=== PATIENT | male | born 1975 | race Caucasian/White ===

== ENCOUNTER 2021-10-25 11:20 | Observation (INO) | payer OTHER ==
[~2021-10-25] VITALS: Ht 157.5 cm; Wt 81.0 kg
[~2021-10-25 11:20] MED LIST: ATOR80 PO; CENTRUM SILVER1 EAC2 PO; CLOP75 PO; GLIP10; Isosorbide Mono30 MG PO; METO50ER PO; NITR.4SL SL; POTA8 PO; STEGLATRO5 MG PO; TRULICITY0.75 MG/01 SC
[2021-10-25 12:25] LABS: BASOPHILS ABSOLUTE AUTO 0.03 K/mm3 (0.00-0.23); BASOPHILS PERCENT AUTO 1 % (0-2); EOSINOPHILS ABSOLUTE AUTO 0.14 K/mm3 (0.00-0.68); EOSINOPHILS PERCENT AUTO 3 % (0-6); Hematocrit 50.3 % (37.0-53.0); Hemoglobin 17.5 g/dL (13.5-17.5); IMMATURE GRAN ABSOLUTE AUTO 0.02 K/mm3 (0.00-0.10); IMMATURE GRAN PERCENT AUTO 0 % (0-1); LYMPHOCYTES ABSOLUTE AUTO 1.21 K/mm3 (0.84-5.20); LYMPHOCYTES PERCENT AUTO 26 % (21-46); MONOCYTES ABSOLUTE AUTO 0.27 K/mm3 (0.16-1.47); MONOCYTES PERCENT AUTO 6 % (4-13); Mean Corpuscular HGB 32.7 pg (26.0-34.0); Mean Corpuscular HGB Conc 34.8 g/dL (31.5-36.5); Mean Corpuscular Volume 94 fL (80-100); Mean Platelet Volume 9.4 fL (9.1-12.4); NEUTROPHILS ABSOLUTE AUTO 2.94 K/mm3 (1.96-9.15); NEUTROPHILS PERCENT AUTO 64 % (41-73); Platelet Count 187 K/mm3 (150-400); RDW Standard Deviation 41.9 fL (35.1-46.3); Red Blood Cell Count 5.35 M/mm3 (4.30-5.90); White Blood Cell Count 4.61 K/mm3 (4.00-11.30)
[2021-10-25 12:44] LABS: Albumin, Blood 4.1 g/dL (3.4-5.0); Albumin/Globulin Ratio 0.9 (0.8-1.8); Bilirubin, Total 0.7 mg/dL (0.1-1.0); Bun/Creatinine Ratio 13.5 (12.0-20.0); Calcium, Blood 9.3 mg/dL (8.5-10.1); Creatinine, Blood 1.26 mg/dL (0.60-1.20); Globulin, Blood 4.4 g/dL (2.2-4.0); Potassium, Blood 5.6 mmol/L (3.5-5.5); Total Protein, Blood 8.5 g/dL (6.4-8.2)
[2021-10-25 14:49] LABS: Source, Urine Clean Catch
[2021-10-25 15:00] LABS: Appearance, Urine Clear (Clear); Bilirubin, Urine Neg (Neg); Blood, Urine 2+ (Neg); Color, Urine Yellow (P-Yellow); Glucose Qualitative, Urine 4+ (Neg); Ketones, Urine Neg (Neg); Leukocyte Esterase, Urine Neg (Neg); Nitrite, Urine Neg (Neg); Protein, Urine Neg (Neg); Urobilinogen, Urine NORM (Normal); pH, Urine 6.5 (5.0-8.0)
[2021-10-25 15:32] LABS: White Blood Cells, Urine 0-2 /hpf (0-5)
[2021-10-25 15:33] LABS: Bacteria Rare /hpf; Hyaline Casts 0-2 /lpf (0-2); Spermatozoa Few /hpf; Squamous Epithelial Cells Rare /hpf (Few)
--- NOTE | 2021-10-25 19:26 | NUR ---
ADMISSION NOTE PT ARRIVED TO MEDICAL FLOOR FROM ED AT APPROX 1826. PT IS AxOx4. COOPERATIVE WITH CARE. INDEPENDENT IN THE ROOM. TELE PLACED. VITALS REVIEWED. PT HYPERTENSIVE. PT STATES HE HAS HX OF HTN, BUT HASN'T BEEN TAKING HIS RX MEDS ADMISSION NOT COMPLETED. NIGHT RN NOTIFIED.
[2021-10-25 21:21] LABS: U Amphetamine Screen Not Detected; U Barbituate Screen Not Detected; U Benzodiazapine Screen Not Detected; U Buprenorphine Screen Not Detected; U Cannabinoids Screen DETECTED; U Cocaine Screen Not Detected; U Methadone Screen Not Detected; U Methamphetamine Screen Not Detected; U Opiates Screen DETECTED; U Oxycodone Screen Not Detected; U Phencyclidine Screen Not Detected; U Propoxyphene Screen Not Detected
[2021-10-26 05:22] LABS: BASOPHILS ABSOLUTE AUTO 0.03 K/mm3 (0.00-0.23); BASOPHILS PERCENT AUTO 1 % (0-2); EOSINOPHILS ABSOLUTE AUTO 0.12 K/mm3 (0.00-0.68); EOSINOPHILS PERCENT AUTO 3 % (0-6); Hematocrit 49.5 % (37.0-53.0); Hemoglobin 16.6 g/dL (13.5-17.5); IMMATURE GRAN ABSOLUTE AUTO 0.02 K/mm3 (0.00-0.10); IMMATURE GRAN PERCENT AUTO 0 % (0-1); LYMPHOCYTES ABSOLUTE AUTO 1.42 K/mm3 (0.84-5.20); LYMPHOCYTES PERCENT AUTO 29 % (21-46); MONOCYTES ABSOLUTE AUTO 0.34 K/mm3 (0.16-1.47); MONOCYTES PERCENT AUTO 7 % (4-13); Mean Corpuscular HGB 32.2 pg (26.0-34.0); Mean Corpuscular HGB Conc 33.5 g/dL (31.5-36.5); Mean Corpuscular Volume 96 fL (80-100); Mean Platelet Volume 9.5 fL (9.1-12.4); NEUTROPHILS PERCENT AUTO 60 % (41-73); Platelet Count 184 K/mm3 (150-400); RDW Coefficient Variation 12.2 % (11.7-14.2); RDW Standard Deviation 43.8 fL (35.1-46.3); Red Blood Cell Count 5.16 M/mm3 (4.30-5.90); White Blood Cell Count 4.83 K/mm3 (4.00-11.30)
[2021-10-26 05:52] LABS: Albumin, Blood 3.5 g/dL (3.4-5.0); Albumin/Globulin Ratio 0.9 (0.8-1.8); Bilirubin, Total 0.6 mg/dL (0.1-1.0); Bun/Creatinine Ratio 12.4 (12.0-20.0); Calcium, Blood 8.6 mg/dL (8.5-10.1); Creatinine, Blood 1.13 mg/dL (0.60-1.20); Potassium, Blood 4.1 mmol/L (3.5-5.5); Total Protein, Blood 7.5 g/dL (6.4-8.2)
--- NOTE | 2021-10-26 06:34 | NUR ---
SHIFT SUMMARY AOX4. BP LIGHTLY ELEVATED @HS SYSTOLIC 180'S, GAVE HYDRALAZINE & BP HAS TRENDED DOWN SINCE. REST OF VITALS STABLE. TELE NSR c 1ST DEGREE HB HR 70'S. HAD 3 EPISODES EMESIS, MEDICATED 2X c ZOFRAN & 1X PHENERGAN. WHILE PT NAUSEATED & HAVING EMESIS HE WAS COOL, CLAMMY, DIAPHORETIC. REPORTS CONSTANT CP OVER LUCW 7-8, STATES PAIN LEVEL FLUCTUATES HOWEVER DOESNT GO AWAY. MEDICATED 3X c 1MG DILAUDID & STATES PAIN LEVEL STILL /10 HOWEVER SITTING WATCHING TV & ASKING THIS NURSE ABOUT THE [facility] TO GO TO IN TOWN. PT STATES NITRO DOESNT WORK FOR THE PAIN. REPORTS TIGHTNESS & DYSPNEA c CP THATS WORSE c ACTIVITY. MEDICATED 1X FOR PAULINO c TYLENOL. PLAN TO HAVE ECHO PERFORMED TODAY. CALL LIGHT IN REACH & PT ABLE TO MAKE NEEDS KNOWN.
[2021-10-26] MEDS ORDERED: ASPI81CH PO (15:07)
[2021-10-26] MEDS ORDERED: LIDO700A20 TOP (15:07)
--- NOTE | 2021-10-26 15:55 | NUR ---
DISCHARGE SUMMARY PATIENT DISCHARGED HOME. DISCHARGE PAPERWORK REVIEWED WITH PATIENT AND ALL QUESTIONS ANSWERED. PRESCRIPTIONS FAXED TO PATIENTS PREFERRED PHARMACY. IV AND TELE D/C'D. PATIENT AND ALL BELONGINGS TAKEN VIA WHEELCHAIR TO TAXI AND TAKEN BY TAXI.
== END 2021-10-26 15:46 | disposition home or self-care (01) ==
LOC: ER 11:20 → MEDS 16:40
PROVIDERS: Emergency Medicine; Family Medicine; ADMIT Internal Medicine
DX: R07.9 Chest pain, unspecified (principal); I11.9 Hypertensive heart disease without heart failure; R79.89 Other specified abnormal findings of blood chemistry; E87.5 Hyperkalemia; E87.1 Hypo-osmolality and hyponatremia; E11.9 Type 2 diabetes mellitus without complications; I25.10 Atherosclerotic heart disease of native coronary artery without angina pectoris; F10.10 Alcohol abuse, uncomplicated; J44.9 Chronic obstructive pulmonary disease, unspecified; E78.5 Hyperlipidemia, unspecified; N17.9 Acute kidney failure, unspecified; I25.2 Old myocardial infarction; I69.998 Other sequelae following unspecified cerebrovascular disease; Z91.14 Patient's other noncompliance with medication regimen; Z95.1 Presence of aortocoronary bypass graft; Z88.8 Allergy status to other drugs, medicaments and biological substances; Z88.5 Allergy status to narcotic agent; Z87.891 Personal history of nicotine dependence; Z87.820 Personal history of traumatic brain injury; Z95.5 Presence of coronary angioplasty implant and graft
CPT/HCPCS: 36415; 71045; 80053; 81001; 82947; 83880; 84484; 85025; 93308; 93321; A9270; J0360; J1170; J1650; J1815; J2405; J2550

== ENCOUNTER 2021-12-10 20:08 | Emergency (ER) | payer OTHER ==
[~2021-12-10] VITALS: Ht 162.6 cm; Wt 78.9 kg
[~2021-12-10 20:08] MED LIST changes: +ASPI81CH PO; +LIDO700A20 TOP
[2021-12-10 20:42] LABS: BASOPHILS ABSOLUTE AUTO 0.02 K/mm3 (0.00-0.23); BASOPHILS PERCENT AUTO 1 % (0-2); EOSINOPHILS ABSOLUTE AUTO 0.13 K/mm3 (0.00-0.68); EOSINOPHILS PERCENT AUTO 3 % (0-6); Hematocrit 42.3 % (37.0-53.0); Hemoglobin 14.6 g/dL (13.5-17.5); IMMATURE GRAN ABSOLUTE AUTO 0.01 K/mm3 (0.00-0.10); IMMATURE GRAN PERCENT AUTO 0 % (0-1); LYMPHOCYTES ABSOLUTE AUTO 1.76 K/mm3 (0.84-5.20); LYMPHOCYTES PERCENT AUTO 41 % (21-46); MONOCYTES ABSOLUTE AUTO 0.34 K/mm3 (0.16-1.47); MONOCYTES PERCENT AUTO 8 % (4-13); Mean Corpuscular HGB 32.7 pg (26.0-34.0); Mean Corpuscular HGB Conc 34.5 g/dL (31.5-36.5); Mean Corpuscular Volume 95 fL (80-100); Mean Platelet Volume 9.8 fL (9.1-12.4); NEUTROPHILS PERCENT AUTO 47 % (41-73); Platelet Count 157 K/mm3 (150-400); RDW Coefficient Variation 12.4 % (11.7-14.2); Red Blood Cell Count 4.47 M/mm3 (4.30-5.90); White Blood Cell Count 4.26 K/mm3 (4.00-11.30)
[2021-12-10 21:01] LABS: Albumin, Blood 3.9 g/dL (3.4-5.0); Albumin/Globulin Ratio 1.2 (0.8-1.8); Bilirubin, Total 0.5 mg/dL (0.1-1.0); Bun/Creatinine Ratio 16.3 (12.0-20.0); Calcium, Blood 8.4 mg/dL (8.5-10.1); Creatinine, Blood 1.41 mg/dL (0.60-1.20); Globulin, Blood 3.3 g/dL (2.2-4.0); Potassium, Blood 4.7 mmol/L (3.5-5.5); Total Protein, Blood 7.2 g/dL (6.4-8.2)
== END 2021-12-10 22:33 | disposition home or self-care (01) ==
LOC: ER 20:08
PROVIDERS: Physician Assistant
DX: G45.9 Transient cerebral ischemic attack, unspecified (principal); I25.2 Old myocardial infarction; E78.5 Hyperlipidemia, unspecified; E11.9 Type 2 diabetes mellitus without complications; I10 Essential (primary) hypertension; I25.10 Atherosclerotic heart disease of native coronary artery without angina pectoris; K21.9 Gastro-esophageal reflux disease without esophagitis; Z88.8 Allergy status to other drugs, medicaments and biological substances; Z88.5 Allergy status to narcotic agent; Z79.899 Other long term (current) drug therapy; Z79.82 Long term (current) use of aspirin; Z87.891 Personal history of nicotine dependence
CPT/HCPCS: 36415; 70450; 80053; 82947; 85025; 93005; 93010; 99285-25; A9270

== ENCOUNTER 2022-07-01 06:56 | Day surgery (SDC) | payer OTHER ==
[2022-07-01] VITALS (9 sets, daily range): BP systolic 152–175; BP diastolic 88–120
[~2022-07-01] VITALS: Ht 165.1 cm; Wt 84.0 kg
[~2022-07-01 06:56] MED LIST changes: +BUTALB-ASPIRIN1 EAC1 PO; +EZET10 PO; +PANT40 PO
[2022-07-01] MEDS ORDERED: GABA300 PO (07:31)
--- NOTE | 2022-07-01 11:55 | NUR ---
PT AMBULATED TO BR TO VOID. LEFT FEMORAL GROIN SITE SOFT NON-TENDER WITH NO HEMATOMA AND NO BLEEDING. CALL LIGHT IN REACH.
--- NOTE | 2022-07-01 12:00 | NUR ---
PT AMB TO BATHROOM /C SBA. TOLERATED WELL. L BLEEDING OR SWELLING L GROIN AREA.
--- NOTE | 2022-07-01 13:03 | NUR ---
PT AND VERBALIZED UNDERSTANDING OF WRITTEN AND VERBAL D/C INST. IV REMOVED. PT TAKEN OUT OF THE HRT CENTER VIA W/C.
== END 2022-07-01 13:00 | disposition home or self-care (01) ==
LOC: MHTC 06:56
DX: E11.51 Type 2 diabetes mellitus with diabetic peripheral angiopathy without gangrene (principal); I70.223 Atherosclerosis of native arteries of extremities with rest pain, bilateral legs; I25.10 Atherosclerotic heart disease of native coronary artery without angina pectoris; E78.5 Hyperlipidemia, unspecified; Z95.1 Presence of aortocoronary bypass graft; Z87.891 Personal history of nicotine dependence; Z88.5 Allergy status to narcotic agent; Z88.8 Allergy status to other drugs, medicaments and biological substances; Z79.82 Long term (current) use of aspirin; Z79.4 Long term (current) use of insulin; Z79.02 Long term (current) use of antithrombotics/antiplatelets; Z79.899 Other long term (current) drug therapy
CPT/HCPCS: 76937; 99152; 99153; C1725; C1760; C1769; C1887; C1894; C2623; J1644; J2250; J3010; J7030; J7050; Q9967

== ENCOUNTER 2022-09-11 17:04 | Emergency (ER) | payer OTHER ==
[~2022-09-11] VITALS: Ht 170.2 cm; Wt 79.4 kg
[~2022-09-11 17:04] MED LIST changes: +GABA300 PO; +INSULANI SC; +TRAZ50 PO
[2022-09-11 17:10] VITALS: BP 104/90
[2022-09-11 17:54] LABS: BASOPHILS ABSOLUTE AUTO 0.02 K/mm3 (0.00-0.23); BASOPHILS PERCENT AUTO 0 % (0-2); EOSINOPHILS ABSOLUTE AUTO 0.08 K/mm3 (0.00-0.68); EOSINOPHILS PERCENT AUTO 1 % (0-6); Hematocrit 49.4 % (37.0-53.0); Hemoglobin 16.6 g/dL (13.5-17.5); IMMATURE GRAN ABSOLUTE AUTO 0.02 K/mm3 (0.00-0.10); IMMATURE GRAN PERCENT AUTO 0 % (0-1); LYMPHOCYTES ABSOLUTE AUTO 1.42 K/mm3 (0.84-5.20); LYMPHOCYTES PERCENT AUTO 25 % (21-46); MONOCYTES ABSOLUTE AUTO 0.43 K/mm3 (0.16-1.47); MONOCYTES PERCENT AUTO 8 % (4-13); Mean Corpuscular HGB 31.8 pg (26.0-34.0); Mean Corpuscular HGB Conc 33.6 g/dL (31.5-36.5); Mean Corpuscular Volume 95 fL (80-100); Mean Platelet Volume 9.4 fL (9.1-12.4); NEUTROPHILS ABSOLUTE AUTO 3.61 K/mm3 (1.96-9.15); NEUTROPHILS PERCENT AUTO 65 % (41-73); Platelet Count 293 K/mm3 (150-400); RDW Coefficient Variation 11.9 % (11.7-14.2); RDW Standard Deviation 41.4 fL (35.1-46.3); Red Blood Cell Count 5.22 M/mm3 (4.30-5.90); White Blood Cell Count 5.58 K/mm3 (4.00-11.30)
[2022-09-11 18:26] LABS: Albumin/Globulin Ratio 0.8 (0.8-1.8); Bilirubin, Total 0.7 mg/dL (0.1-1.0); Calcium, Blood 9.9 mg/dL (8.5-10.1); Creatinine, Blood 1.5 mg/dL (0.60-1.20); Globulin, Blood 4.9 g/dL (2.2-4.0); Potassium, Blood 4.7 mmol/L (3.5-5.5); Total Protein, Blood 8.9 g/dL (6.4-8.2)
[2022-09-11] MEDS ORDERED: AMOCLA875 PO (21:42)
== END 2022-09-11 21:52 | disposition home or self-care (01) ==
LOC: ER 17:04
PROVIDERS: Physician Assistant
DX: J32.9 Chronic sinusitis, unspecified (principal); I25.10 Atherosclerotic heart disease of native coronary artery without angina pectoris; L98.8 Other specified disorders of the skin and subcutaneous tissue; Z88.5 Allergy status to narcotic agent; Z88.8 Allergy status to other drugs, medicaments and biological substances; Z79.899 Other long term (current) drug therapy; Z79.82 Long term (current) use of aspirin; Z79.4 Long term (current) use of insulin; Z87.891 Personal history of nicotine dependence; I25.2 Old myocardial infarction; E78.5 Hyperlipidemia, unspecified; E11.9 Type 2 diabetes mellitus without complications; I10 Essential (primary) hypertension; K21.9 Gastro-esophageal reflux disease without esophagitis; M10.9 Gout, unspecified
CPT/HCPCS: 70450; 71046; 80053; 84484; 85025; 93005; 93010; 99284-25; A9270; J7030

== ENCOUNTER 2022-10-16 23:58 | Emergency (ER) | payer OTHER ==
[~2022-10-16] VITALS: Ht 167.6 cm; Wt 65.8 kg
[~2022-10-16 23:58] MED LIST changes: +AMOCLA875 PO
[2022-10-17 00:37] LABS: BASOPHILS ABSOLUTE AUTO 0.02 K/mm3 (0.00-0.23); BASOPHILS PERCENT AUTO 0 % (0-2); EOSINOPHILS ABSOLUTE AUTO 0.08 K/mm3 (0.00-0.68); EOSINOPHILS PERCENT AUTO 1 % (0-6); Hematocrit 43.9 % (37.0-53.0); Hemoglobin 14.8 g/dL (13.5-17.5); IMMATURE GRAN ABSOLUTE AUTO 0.07 K/mm3 (0.00-0.10); IMMATURE GRAN PERCENT AUTO 1 % (0-1); LYMPHOCYTES ABSOLUTE AUTO 1.91 K/mm3 (0.84-5.20); LYMPHOCYTES PERCENT AUTO 29 % (21-46); MONOCYTES ABSOLUTE AUTO 0.46 K/mm3 (0.16-1.47); MONOCYTES PERCENT AUTO 7 % (4-13); Mean Corpuscular HGB 32.5 pg (26.0-34.0); Mean Corpuscular HGB Conc 33.7 g/dL (31.5-36.5); Mean Corpuscular Volume 96 fL (80-100); Mean Platelet Volume 11.2 fL (9.1-12.4); NEUTROPHILS ABSOLUTE AUTO 4.08 K/mm3 (1.96-9.15); NEUTROPHILS PERCENT AUTO 62 % (41-73); Platelet Count 125 K/mm3 (150-400); RDW Coefficient Variation 13.2 % (11.7-14.2); RDW Standard Deviation 46.4 fL (35.1-46.3); Red Blood Cell Count 4.56 M/mm3 (4.30-5.90); White Blood Cell Count 6.62 K/mm3 (4.00-11.30)
[2022-10-17 02:06] LABS: Albumin, Blood 3.7 g/dL (3.4-5.0); Bilirubin, Total 0.4 mg/dL (0.1-1.0); Bun/Creatinine Ratio 27.9 (12.0-20.0); Calcium, Blood 8.2 mg/dL (8.5-10.1); Creatinine, Blood 1.22 mg/dL (0.60-1.20); Globulin, Blood 3.6 g/dL (2.2-4.0); Potassium, Blood 3.9 mmol/L (3.5-5.5); Total Protein, Blood 7.3 g/dL (6.4-8.2)
[2022-10-17] MEDS ORDERED: Flonase 0.05% N16 GM (03:03)
[2022-10-17] MEDS ORDERED: CEFP200 PO (05:34)
[2022-10-17] MEDS ORDERED: AZIT250 PO (05:34)
[2022-10-17 05:45] VITALS: BP 140/81
== END 2022-10-17 05:55 | disposition home or self-care (01) ==
LOC: ER 23:58
PROVIDERS: Student in an Organized Health Care Education/Training Program
DX: J18.9 Pneumonia, unspecified organism (principal); G43.909 Migraine, unspecified, not intractable, without status migrainosus; Z88.5 Allergy status to narcotic agent; Z79.899 Other long term (current) drug therapy; Z79.82 Long term (current) use of aspirin; I13.0 Hypertensive heart and chronic kidney disease with heart failure and stage 1 through stage 4 chronic kidney disease, or unspecified chronic kidney disease; E11.22 Type 2 diabetes mellitus with diabetic chronic kidney disease; E78.5 Hyperlipidemia, unspecified; I50.30 Unspecified diastolic (congestive) heart failure; I25.10 Atherosclerotic heart disease of native coronary artery without angina pectoris; Z87.891 Personal history of nicotine dependence
CPT/HCPCS: 70450; 71046; 80053; 83880; 84484; 85025; 93005; 93010; 96361; 96374; 96375; 99285-25; A9270; J1885; J2765; J7030

== ENCOUNTER 2023-03-22 18:28 | Emergency (ER) | payer OTHER ==
[~2023-03-22] VITALS: Ht 167.6 cm; Wt 79.4 kg
[~2023-03-22 18:28] MED LIST changes: +AZIT250 PO; +CEFP200 PO; +Flonase 0.05% N16 GM
[2023-03-22 19:53] LABS: BASOPHILS ABSOLUTE AUTO 0.03 K/mm3 (0.00-0.23); BASOPHILS PERCENT AUTO 1 % (0-2); EOSINOPHILS ABSOLUTE AUTO 0.11 K/mm3 (0.00-0.68); EOSINOPHILS PERCENT AUTO 2 % (0-6); Hematocrit 47.3 % (37.0-53.0); Hemoglobin 16.3 g/dL (13.5-17.5); IMMATURE GRAN ABSOLUTE AUTO 0.02 K/mm3 (0.00-0.10); IMMATURE GRAN PERCENT AUTO 0 % (0-1); LYMPHOCYTES ABSOLUTE AUTO 1.51 K/mm3 (0.84-5.20); LYMPHOCYTES PERCENT AUTO 30 % (21-46); MONOCYTES ABSOLUTE AUTO 0.39 K/mm3 (0.16-1.47); MONOCYTES PERCENT AUTO 8 % (4-13); Mean Corpuscular HGB 32.4 pg (26.0-34.0); Mean Corpuscular HGB Conc 34.5 g/dL (31.5-36.5); Mean Corpuscular Volume 94 fL (80-100); Mean Platelet Volume 9.3 fL (9.1-12.4); NEUTROPHILS ABSOLUTE AUTO 2.96 K/mm3 (1.96-9.15); NEUTROPHILS PERCENT AUTO 59 % (41-73); Platelet Count 192 K/mm3 (150-400); RDW Coefficient Variation 12.7 % (11.7-14.2); RDW Standard Deviation 43.8 fL (35.1-46.3); Red Blood Cell Count 5.03 M/mm3 (4.30-5.90); White Blood Cell Count 5.02 K/mm3 (4.00-11.30)
[2023-03-22 20:33] LABS: Albumin, Blood 3.9 g/dL (3.4-5.0); Bilirubin, Total 0.6 mg/dL (0.1-1.0); Calcium, Blood 9.3 mg/dL (8.5-10.1); Creatinine, Blood 1.41 mg/dL (0.60-1.20); Globulin, Blood 3.9 g/dL (2.2-4.0); Potassium, Blood 4.8 mmol/L (3.5-5.5); Total Protein, Blood 7.8 g/dL (6.4-8.2)
[2023-03-22 21:15] VITALS: BP 118/91
== END 2023-03-22 21:30 | disposition home or self-care (01) ==
LOC: ER 18:28
PROVIDERS: Emergency Medicine
DX: R07.9 Chest pain, unspecified (principal); R06.02 Shortness of breath; Z87.891 Personal history of nicotine dependence; Z86.73 Personal history of transient ischemic attack (TIA), and cerebral infarction without residual deficits; Z95.1 Presence of aortocoronary bypass graft; Z79.85 Long-term (current) use of injectable non-insulin antidiabetic drugs; Z79.899 Other long term (current) drug therapy; Z88.5 Allergy status to narcotic agent; Z88.8 Allergy status to other drugs, medicaments and biological substances
CPT/HCPCS: 36415; 71046; 80053; 84484; 85025; 93005; 93010; 99285-25

== ENCOUNTER → 2023-11-05 | Emergency (ER) | payer OTHER ==
[~2023-11-05] VITALS: Ht 162.6 cm; Wt 72.6 kg
[2023-11-05 15:21] VITALS: BP 130/87
[2023-11-05 16:04] LABS: BASOPHILS ABSOLUTE AUTO 0.03 K/mm3 (0.00-0.23); BASOPHILS PERCENT AUTO 1 % (0-2); EOSINOPHILS ABSOLUTE AUTO 0.13 K/mm3 (0.00-0.68); EOSINOPHILS PERCENT AUTO 3 % (0-6); Hematocrit 44.2 % (37.0-53.0); Hemoglobin 15.1 g/dL (13.5-17.5); IMMATURE GRAN ABSOLUTE AUTO 0.01 K/mm3 (0.00-0.10); IMMATURE GRAN PERCENT AUTO 0 % (0-1); LYMPHOCYTES ABSOLUTE AUTO 1.71 K/mm3 (0.84-5.20); LYMPHOCYTES PERCENT AUTO 37 % (21-46); MONOCYTES ABSOLUTE AUTO 0.33 K/mm3 (0.16-1.47); MONOCYTES PERCENT AUTO 7 % (4-13); Mean Corpuscular HGB Conc 34.2 g/dL (31.5-36.5); Mean Corpuscular Volume 97 fL (80-100); Mean Platelet Volume 10.7 fL (9.1-12.4); NEUTROPHILS ABSOLUTE AUTO 2.48 K/mm3 (1.96-9.15); NEUTROPHILS PERCENT AUTO 53 % (41-73); Platelet Count 166 K/mm3 (150-400); RDW Coefficient Variation 12.6 % (11.7-14.2); RDW Standard Deviation 44.6 fL (35.1-46.3); Red Blood Cell Count 4.57 M/mm3 (4.30-5.90); White Blood Cell Count 4.69 K/mm3 (4.00-11.30)
[2023-11-05 16:13] LABS: Albumin, Blood 4.2 g/dL (3.4-5.0); Albumin/Globulin Ratio 1.2 (0.8-1.8); Bilirubin, Total 0.5 mg/dL (0.1-1.0); Bun/Creatinine Ratio 19.6 (12.0-20.0); Calcium, Blood 8.9 mg/dL (8.5-10.1); Creatinine, Blood 1.48 mg/dL (0.60-1.20); Globulin, Blood 3.6 g/dL (2.2-4.0); Potassium, Blood 4.3 mmol/L (3.5-5.5); Total Protein, Blood 7.8 g/dL (6.4-8.2)
== END ==
LOC: ER 15:08
PROVIDERS: Physician Assistant
DX: R53.1 Weakness (principal); E11.9 Type 2 diabetes mellitus without complications; E78.5 Hyperlipidemia, unspecified; I11.0 Hypertensive heart disease with heart failure; I50.30 Unspecified diastolic (congestive) heart failure; Z87.891 Personal history of nicotine dependence; Z86.73 Personal history of transient ischemic attack (TIA), and cerebral infarction without residual deficits; Z79.899 Other long term (current) drug therapy; Z79.52 Long term (current) use of systemic steroids; Z79.82 Long term (current) use of aspirin; Z79.02 Long term (current) use of antithrombotics/antiplatelets; Z88.5 Allergy status to narcotic agent
CPT/HCPCS: 70450; 80053; 85025

== ENCOUNTER 2024-01-29 13:27 | Emergency (ER) | payer OTHER ==
[~2024-01-29] VITALS: Ht 170.2 cm; Wt 79.4 kg
[~2024-01-29 13:27] MED LIST changes: +AMLO5 PO; +CARV6.25 PO; +FUROSEMIDE20 MG PO; +INSULIN GL100 UNIT/2 SC; +Lisinopril2.5 MG PO; +OXYC5; +POTCHL20ER PO; +SOAANZ20 M1 PO; +TOPI50 PO
[2024-01-29 14:38] LABS: BASOPHILS ABSOLUTE AUTO 0.02 K/mm3 (0.00-0.23); BASOPHILS PERCENT AUTO 0 % (0-2); EOSINOPHILS ABSOLUTE AUTO 0.08 K/mm3 (0.00-0.68); EOSINOPHILS PERCENT AUTO 2 % (0-6); Hematocrit 43.1 % (37.0-53.0); Hemoglobin 14.4 g/dL (13.5-17.5); IMMATURE GRAN ABSOLUTE AUTO 0.02 K/mm3 (0.00-0.10); IMMATURE GRAN PERCENT AUTO 0 % (0-1); LYMPHOCYTES ABSOLUTE AUTO 1.27 K/mm3 (0.84-5.20); LYMPHOCYTES PERCENT AUTO 28 % (21-46); MONOCYTES ABSOLUTE AUTO 0.32 K/mm3 (0.16-1.47); MONOCYTES PERCENT AUTO 7 % (4-13); Mean Corpuscular HGB 33.3 pg (26.0-34.0); Mean Corpuscular HGB Conc 33.4 g/dL (31.5-36.5); Mean Corpuscular Volume 100 fL (80-100); Mean Platelet Volume 9.8 fL (9.1-12.4); NEUTROPHILS ABSOLUTE AUTO 2.91 K/mm3 (1.96-9.15); NEUTROPHILS PERCENT AUTO 63 % (41-73); Platelet Count 182 K/mm3 (150-400); RDW Coefficient Variation 12.4 % (11.7-14.2); RDW Standard Deviation 45.1 fL (35.1-46.3); Red Blood Cell Count 4.32 M/mm3 (4.30-5.90); White Blood Cell Count 4.62 K/mm3 (4.00-11.30)
[2024-01-29 14:57] LABS: Albumin, Blood 3.6 g/dL (3.4-5.0); Albumin/Globulin Ratio 0.9 (0.8-1.8); Bilirubin, Total 0.6 mg/dL (0.1-1.0); Bun/Creatinine Ratio 18.9 (12.0-20.0); Calcium, Blood 8.3 mg/dL (8.5-10.1); Creatinine, Blood 1.32 mg/dL (0.60-1.20); Globulin, Blood 3.8 g/dL (2.2-4.0); Potassium, Blood 5.5 mmol/L (3.5-5.5); Total Protein, Blood 7.4 g/dL (6.4-8.2)
[2024-01-29] MEDS ORDERED: FentaNYL Citrate 50 MCG/ML 2 ML Injection IV ONE (16:35)
[2024-01-29] MEDS ORDERED: Isosorbide Dini30 MG PO (20:31)
[2024-01-29 20:55] VITALS: BP 170/96
== END 2024-01-29 21:00 | disposition home or self-care (01) ==
LOC: ER 13:27
PROVIDERS: Physician Assistant
DX: R07.89 Other chest pain (principal); Z87.891 Personal history of nicotine dependence; Z86.73 Personal history of transient ischemic attack (TIA), and cerebral infarction without residual deficits; Z79.02 Long term (current) use of antithrombotics/antiplatelets; Z79.51 Long term (current) use of inhaled steroids; Z79.899 Other long term (current) drug therapy; Z88.5 Allergy status to narcotic agent; Z88.8 Allergy status to other drugs, medicaments and biological substances
CPT/HCPCS: 36415; 71046; 71260; 80053; 83690; 84484; 85025; 93005; 93010; 96374-59; 99285-25; J3010; Q9967

== ENCOUNTER 2024-02-14 17:00 | Emergency (ER) | payer OTHER ==
[~2024-02-14] VITALS: Ht 165.1 cm; Wt 79.4 kg
[~2024-02-14 17:00] MED LIST changes: +Isosorbide Dini30 MG PO
[2024-02-14 18:13] LABS: Source, Urine Clean Catch
[2024-02-14 18:15] LABS: BASOPHILS ABSOLUTE AUTO 0.02 K/mm3 (0.00-0.23); BASOPHILS PERCENT AUTO 1 % (0-2); EOSINOPHILS ABSOLUTE AUTO 0.07 K/mm3 (0.00-0.68); EOSINOPHILS PERCENT AUTO 2 % (0-6); Hematocrit 39.8 % (37.0-53.0); Hemoglobin 13.4 g/dL (13.5-17.5); IMMATURE GRAN ABSOLUTE AUTO 0.01 K/mm3 (0.00-0.10); IMMATURE GRAN PERCENT AUTO 0 % (0-1); LYMPHOCYTES ABSOLUTE AUTO 1.53 K/mm3 (0.84-5.20); LYMPHOCYTES PERCENT AUTO 39 % (21-46); MONOCYTES ABSOLUTE AUTO 0.35 K/mm3 (0.16-1.47); MONOCYTES PERCENT AUTO 9 % (4-13); Mean Corpuscular HGB 33.1 pg (26.0-34.0); Mean Corpuscular HGB Conc 33.7 g/dL (31.5-36.5); Mean Corpuscular Volume 98 fL (80-100); Mean Platelet Volume 10.1 fL (9.1-12.4); NEUTROPHILS ABSOLUTE AUTO 1.99 K/mm3 (1.96-9.15); NEUTROPHILS PERCENT AUTO 50 % (41-73); Platelet Count 146 K/mm3 (150-400); RDW Coefficient Variation 12.8 % (11.7-14.2); RDW Standard Deviation 46.5 fL (35.1-46.3); Red Blood Cell Count 4.05 M/mm3 (4.30-5.90); White Blood Cell Count 3.97 K/mm3 (4.00-11.30)
[2024-02-14 18:16] LABS: Appearance, Urine Clear (Clear); Bilirubin, Urine Neg (Neg); Blood, Urine Neg (Neg); Color, Urine Pale Yellow (P-Yellow); Glucose Qualitative, Urine 4+ (Neg); Ketones, Urine Neg (Neg); Leukocyte Esterase, Urine Neg (Neg); Nitrite, Urine Neg (Neg); Protein, Urine Neg (Neg); Urobilinogen, Urine NORM (Normal)
[2024-02-14 18:41] LABS: Albumin, Blood 3.6 g/dL (3.4-5.0); Bilirubin, Total 0.7 mg/dL (0.1-1.0); Bun/Creatinine Ratio 16.6 (12.0-20.0); Calcium, Blood 8.2 mg/dL (8.5-10.1); Creatinine, Blood 1.75 mg/dL (0.60-1.20); Globulin, Blood 3.6 g/dL (2.2-4.0); Magnesium, Blood 2.4 mg/dL (1.6-2.4); Potassium, Blood 4.5 mmol/L (3.5-5.5); Total Protein, Blood 7.2 g/dL (6.4-8.2)
[2024-02-14 18:58] LABS: Influenza A, PCR NEGATIVE (NEGATIVE); Influenza B, PCR NEGATIVE (NEGATIVE); Resp Syncytial Virus, PCR NEGATIVE (NEGATIVE); SARS-Cov-2 (COVID-19) PCR, MMC NEGATIVE (NEGATIVE)
[2024-02-14] MEDS ORDERED: Ketorolac Tromethamine 15mg Vial IV ONE (21:35)
[2024-02-14 22:30] VITALS: BP 100/60
== END 2024-02-14 22:45 | disposition home or self-care (01) ==
LOC: ER 17:00
PROVIDERS: Student in an Organized Health Care Education/Training Program
DX: R55 Syncope and collapse (principal); I10 Essential (primary) hypertension; I25.2 Old myocardial infarction; Z86.73 Personal history of transient ischemic attack (TIA), and cerebral infarction without residual deficits; Z95.1 Presence of aortocoronary bypass graft; Z95.5 Presence of coronary angioplasty implant and graft; Z87.891 Personal history of nicotine dependence; Z88.5 Allergy status to narcotic agent; Z88.8 Allergy status to other drugs, medicaments and biological substances; Z79.85 Long-term (current) use of injectable non-insulin antidiabetic drugs; Z79.4 Long term (current) use of insulin; Z79.82 Long term (current) use of aspirin; Z79.01 Long term (current) use of anticoagulants; Z79.899 Other long term (current) drug therapy
CPT/HCPCS: 0241U; 70450; 71045; 80053; 81003; 83735; 84484; 85025; 93005; 93010; 96374; 99285-25; J1885

== ENCOUNTER 2024-02-28 10:13 | Emergency (ER) | payer OTHER ==
[~2024-02-28] VITALS: Ht 170.2 cm; Wt 74.8 kg
[2024-02-28 11:05] LABS: Hematocrit 39.2 % (37.0-53.0); Hemoglobin 13.4 g/dL (13.5-17.5); Mean Corpuscular HGB 32.9 pg (26.0-34.0); Mean Corpuscular HGB Conc 34.2 g/dL (31.5-36.5); Mean Corpuscular Volume 96 fL (80-100); Mean Platelet Volume 9.7 fL (9.1-12.4); Platelet Count 166 K/mm3 (150-400); RDW Coefficient Variation 12.2 % (11.7-14.2); RDW Standard Deviation 43.7 fL (35.1-46.3); Red Blood Cell Count 4.07 M/mm3 (4.30-5.90); White Blood Cell Count 3.47 K/mm3 (4.00-11.30)
[2024-02-28] MEDS ORDERED: HUMALOG100 UNIT/1 SC (11:05)
[2024-02-28] MEDS ORDERED: NS 500 ML IV SCH (11:05)
[2024-02-28] MEDS ORDERED: STEGLATRO15 MG PO (11:06)
[2024-02-28 11:30] LABS: Albumin, Blood 3.7 g/dL (3.4-5.0); Albumin/Globulin Ratio 1.1 (0.8-1.8); Bilirubin, Total 0.6 mg/dL (0.1-1.0); Bun/Creatinine Ratio 15.2 (12.0-20.0); Calcium, Blood 8.7 mg/dL (8.5-10.1); Creatinine, Blood 1.71 mg/dL (0.60-1.20); Globulin, Blood 3.5 g/dL (2.2-4.0); Potassium, Blood 4.1 mmol/L (3.5-5.5); Total Protein, Blood 7.2 g/dL (6.4-8.2)
[2024-02-28 11:55] LABS: BAND PERCENT MAN 2 % (0-8); BASOPHILS PERCENT MAN 0 % (0-2); EOSINOPHILS PERCENT MAN 0 % (0-6); LYMPHOCYTES ABSOLUTE MAN 0.86 K/mm3 (0.84-5.20); LYMPHOCYTES PERCENT MAN 25 % (21-46); MONOCYTES ABSOLUTE MAN 0.31 K/mm3 (0.16-1.47); MONOCYTES PERCENT MAN 9 % (4-13); NEUTROPHILS ABSOLUTE MAN 2.25 K/mm3 (1.96-9.15); PLASMA CELL ABSOLUTE MAN 0.03 K/mm3 (0.00-0.00); PLASMA CELLS PERCENT MAN 1 % (0-0); SEG NEUTROPHILS PERCENT MAN 63 % (41-73); TOTAL CELLS COUNTED 100
[2024-02-28 13:10] VITALS: BP 104/76
[2024-02-28 13:12] LABS: Source, Urine Clean Catch
[2024-02-28 13:21] LABS: Appearance, Urine Clear (Clear); Bilirubin, Urine Neg (Neg); Blood, Urine Neg (Neg); Glucose Qualitative, Urine 4+ (Neg); Ketones, Urine Neg (Neg); Leukocyte Esterase, Urine Neg (Neg); Nitrite, Urine Neg (Neg); Protein, Urine Neg (Neg); Urobilinogen, Urine NORM (Normal)
[2024-02-28 14:10] LABS: Color, Urine Pale Yellow (P-Yellow)
== END 2024-02-28 13:41 | disposition home or self-care (01) ==
LOC: ER 10:13
PROVIDERS: Physician Assistant
DX: I95.9 Hypotension, unspecified (principal); R55 Syncope and collapse; I11.0 Hypertensive heart disease with heart failure; I50.30 Unspecified diastolic (congestive) heart failure; E78.5 Hyperlipidemia, unspecified; G43.909 Migraine, unspecified, not intractable, without status migrainosus; Z79.51 Long term (current) use of inhaled steroids; Z79.899 Other long term (current) drug therapy; Z79.02 Long term (current) use of antithrombotics/antiplatelets; Z79.82 Long term (current) use of aspirin; Z88.5 Allergy status to narcotic agent; Z88.8 Allergy status to other drugs, medicaments and biological substances
CPT/HCPCS: 80053; 81003; 82947; 83880; 85025; 93005; 93010; 96360; 99284-25; J7030; J7060

== ENCOUNTER → 2024-03-15 | Outpatient (CLI) | payer OTHER ==
[~2024-03-15] MED LIST changes: +HUMALOG100 UNIT/1 SC; +ONDA4ODT MM; +STEGLATRO15 MG PO
[2024-03-15 18:37] LABS: Source, Urine Clean Catch
[2024-03-15 19:59] LABS: Hyaline Casts 25-50 /lpf (0-2)
[2024-03-15 20:01] LABS: Bacteria Few /hpf; Red Blood Cells, Urine 0-2 /hpf (0-2); Spermatozoa Many /hpf; Squamous Epithelial Cells Rare /hpf (Few); White Blood Cells, Urine 0-2 /hpf (0-5)
== END | disposition home or self-care (01) ==
LOC: LAB 18:34 → LAB SHORT 18:34
PROVIDERS: Student in an Organized Health Care Education/Training Program
DX: R31.9 Hematuria, unspecified (principal)
CPT/HCPCS: 81015; 87086

== ENCOUNTER 2024-03-16 11:09 | Emergency (ER) | payer OTHER ==
[~2024-03-16] VITALS: Ht 162.6 cm; Wt 77.6 kg
[~2024-03-16 11:09] MED LIST changes: -ONDA4ODT MM
[2024-03-16 11:43] LABS: BASOPHILS ABSOLUTE AUTO 0.07 K/mm3 (0.00-0.23); BASOPHILS PERCENT AUTO 1 % (0-2); EOSINOPHILS ABSOLUTE AUTO 0.25 K/mm3 (0.00-0.68); EOSINOPHILS PERCENT AUTO 4 % (0-6); Hematocrit 26.8 % (37.0-53.0); Hemoglobin 8.7 g/dL (13.5-17.5); IMMATURE GRAN ABSOLUTE AUTO 0.04 K/mm3 (0.00-0.10); IMMATURE GRAN PERCENT AUTO 1 % (0-1); LYMPHOCYTES ABSOLUTE AUTO 1.08 K/mm3 (0.84-5.20); LYMPHOCYTES PERCENT AUTO 17 % (21-46); MONOCYTES ABSOLUTE AUTO 0.47 K/mm3 (0.16-1.47); MONOCYTES PERCENT AUTO 7 % (4-13); Mean Corpuscular HGB Conc 32.5 g/dL (31.5-36.5); Mean Corpuscular Volume 95 fL (80-100); Mean Platelet Volume 9.9 fL (9.1-12.4); NEUTROPHILS ABSOLUTE AUTO 4.41 K/mm3 (1.96-9.15); NEUTROPHILS PERCENT AUTO 70 % (41-73); Platelet Count 242 K/mm3 (150-400); RDW Standard Deviation 53.1 fL (35.1-46.3); Red Blood Cell Count 2.81 M/mm3 (4.30-5.90); White Blood Cell Count 6.32 K/mm3 (4.00-11.30)
[2024-03-16] MEDS ORDERED: NS 1,000 ML IV SCH (11:50)
[2024-03-16 11:58] LABS: Albumin, Blood 3.3 g/dL (3.4-5.0); Albumin/Globulin Ratio 0.6 (0.8-1.8); Bilirubin, Total 0.4 mg/dL (0.1-1.0); Bun/Creatinine Ratio 7.9 (12.0-20.0); Calcium, Blood 9.2 mg/dL (8.5-10.1); Creatinine, Blood 7.06 mg/dL (0.60-1.20); Globulin, Blood 5.4 g/dL (2.2-4.0); Potassium, Blood 4.3 mmol/L (3.5-5.5); Total Protein, Blood 8.7 g/dL (6.4-8.2)
[2024-03-16] MEDS ORDERED: Lactated Ringer's 1,000 ML IV ONE (12:25)
[2024-03-16 12:43] LABS: Source, Urine Clean Catch
[2024-03-16 12:47] LABS: CORONAVIRUS COVID-19 AG Negative (NEGATIVE); INFLUENZA A AG Negative (NEGATIVE); INFLUENZA B AG Negative (NEGATIVE)
[2024-03-16 12:47] LABS: International Normalized Ratio 0.99; Prothrombin Time Results 10.6 Sec (9.7-11.5)
[2024-03-16 12:49] LABS: Appearance, Urine Clear (Clear); Bilirubin, Urine Neg (Neg); Blood, Urine Neg (Neg); Glucose Qualitative, Urine 4+ (Neg); Ketones, Urine Neg (Neg); Leukocyte Esterase, Urine Neg (Neg); Nitrite, Urine Neg (Neg); Protein, Urine Neg (Neg); Urobilinogen, Urine NORM (Normal)
[2024-03-16 12:50] LABS: Color, Urine Pale Yellow (P-Yellow)
[2024-03-16 15:16] LABS: Hematocrit 41.1 % (37.0-53.0); Hemoglobin 14.2 g/dL (13.5-17.5); Mean Corpuscular HGB 33.1 pg (26.0-34.0); Mean Corpuscular HGB Conc 34.5 g/dL (31.5-36.5); Mean Corpuscular Volume 96 fL (80-100); Mean Platelet Volume 10.1 fL (9.1-12.4); Platelet Count 111 K/mm3 (150-400); RDW Coefficient Variation 12.6 % (11.7-14.2); RDW Standard Deviation 44.4 fL (35.1-46.3); Red Blood Cell Count 4.29 M/mm3 (4.30-5.90); White Blood Cell Count 2.01 K/mm3 (4.00-11.30)
[2024-03-16 15:25] LABS: Albumin, Blood 3.8 g/dL (3.4-5.0); Anion Gap 12 mmol/L (3-11); Blood Urea Nitrogen 34 mg/dL (8-24); Bun/Creatinine Ratio 20.5 (12.0-20.0); CO2, Blood 23 mmol/L (21-32); Calcium, Blood 8.2 mg/dL (8.5-10.1); Chloride, Blood 106 mmol/L (98-108); Creatinine, Blood 1.66 mg/dL (0.60-1.20); Glomerular Filtration Rate 51 (60-); Glucose, Blood 113 mg/dL (70-99); Phosphorus, Blood 2.5 mg/dL (2.5-4.9); Potassium, Blood 3.9 mmol/L (3.5-5.5); Sodium, Blood 137 mmol/L (136-145)
[2024-03-16 16:01] LABS: Calcium, Ionized (POC) 0.83 mmol/L (1.10-1.46); Chloride (POC) 109 mmol/L (98-108); Creatinine (POC) 1.5 mg/dL (0.8-1.3); Glucose (ISTAT POC) 93 mg/dL (70-99); Hemoglobin (POC) 11.6 g/dL (13.5-17.5); Potassium (POC) 3.3 mmol/L (3.5-5.5); Sodium (POC) 139 mmol/L (135-148); Total CO2 (POC) 15 mmol/L (21-32)
[2024-03-16] MEDS ORDERED: ONDA4ODT MM (16:38)
[2024-03-16] MEDS ORDERED: Ondansetron HCl 2 MG / ML 2ML Vial IV ONE (17:00)
[2024-03-16 17:28] VITALS: BP 120/64
== END 2024-03-16 17:33 | disposition home or self-care (01) ==
LOC: ER 11:09
PROVIDERS: Student in an Organized Health Care Education/Training Program
DX: E86.1 Hypovolemia (principal); I95.9 Hypotension, unspecified; I13.0 Hypertensive heart and chronic kidney disease with heart failure and stage 1 through stage 4 chronic kidney disease, or unspecified chronic kidney disease; I50.30 Unspecified diastolic (congestive) heart failure; N18.31 Chronic kidney disease, stage 3a; E78.5 Hyperlipidemia, unspecified; Z87.891 Personal history of nicotine dependence; Z86.73 Personal history of transient ischemic attack (TIA), and cerebral infarction without residual deficits; E11.22 Type 2 diabetes mellitus with diabetic chronic kidney disease; Z79.82 Long term (current) use of aspirin; Z79.02 Long term (current) use of antithrombotics/antiplatelets; Z79.4 Long term (current) use of insulin; Z79.51 Long term (current) use of inhaled steroids; Z88.8 Allergy status to other drugs, medicaments and biological substances; Z88.5 Allergy status to narcotic agent
CPT/HCPCS: 36415; 80047; 80053; 80069; 81003; 82272; 83690; 83735; 85014; 85025; 85027; 85610; 85730; 86850; 86900; 86901; 87428-QW; 93005; 93010; 96361; 96374; 99284-25; J2405; J7030; J7120

== ENCOUNTER 2024-04-22 18:21 | Observation (INO) | payer OTHER ==
[~2024-04-22] VITALS: Ht 162.6 cm; Wt 72.3 kg
[~2024-04-22 18:21] MED LIST changes: -AMLO5 PO; +Amlodipine Bes2.5 MG PO; +ONDA4ODT MM
[2024-04-22 19:42] LABS: BASOPHILS ABSOLUTE AUTO 0.01 K/mm3 (0.00-0.23); BASOPHILS PERCENT AUTO 0 % (0-2); EOSINOPHILS ABSOLUTE AUTO 0.06 K/mm3 (0.00-0.68); EOSINOPHILS PERCENT AUTO 2 % (0-6); Hematocrit 41.1 % (37.0-53.0); IMMATURE GRAN ABSOLUTE AUTO 0.01 K/mm3 (0.00-0.10); IMMATURE GRAN PERCENT AUTO 0 % (0-1); LYMPHOCYTES PERCENT AUTO 44 % (21-46); MONOCYTES ABSOLUTE AUTO 0.31 K/mm3 (0.16-1.47); MONOCYTES PERCENT AUTO 9 % (4-13); Mean Corpuscular HGB 33.2 pg (26.0-34.0); Mean Corpuscular HGB Conc 34.1 g/dL (31.5-36.5); Mean Corpuscular Volume 97 fL (80-100); Mean Platelet Volume 9.5 fL (9.1-12.4); NEUTROPHILS ABSOLUTE AUTO 1.65 K/mm3 (1.96-9.15); NEUTROPHILS PERCENT AUTO 45 % (41-73); Platelet Count 183 K/mm3 (150-400); RDW Coefficient Variation 12.9 % (11.7-14.2); RDW Standard Deviation 46.3 fL (35.1-46.3); Red Blood Cell Count 4.22 M/mm3 (4.30-5.90); White Blood Cell Count 3.64 K/mm3 (4.00-11.30)
[2024-04-22 19:57] LABS: D-Dimer, Quantitative <0.19 mg/L FEU (0.00-0.52)
[2024-04-22 20:13] LABS: Albumin, Blood 4.1 g/dL (3.4-5.0); Albumin/Globulin Ratio 1.1 (0.8-1.8); Bilirubin, Total 0.8 mg/dL (0.1-1.0); Bun/Creatinine Ratio 13.1 (12.0-20.0); Calcium, Blood 8.7 mg/dL (8.5-10.1); Creatinine, Blood 1.6 mg/dL (0.60-1.20); Globulin, Blood 3.8 g/dL (2.2-4.0); Potassium, Blood 3.2 mmol/L (3.5-5.5); Total Protein, Blood 7.9 g/dL (6.4-8.2)
[2024-04-22] MEDS ORDERED: Ticagrelor 90 MG TABLET PO ONE (21:20)
[2024-04-22 21:41] LABS: International Normalized Ratio 1.07; Prothrombin Time Results 11.4 Sec (9.7-11.5)
[2024-04-22] MEDS ORDERED: FLU VACC TS2024-25(6MOS UP)/PF 45 MCG/0.5 ML SYRINGE IM ONE (22:35)
[2024-04-22] MEDS ORDERED: Ondansetron 4 MG TAB PO PRN (22:35)
[2024-04-22] MEDS ORDERED: NS 1,000 ML IV SCH (23:00)
[2024-04-22] MEDS ORDERED: INSULANPEN SC (23:01)
[2024-04-22 23:23] VITALS: BP 174/95
[2024-04-23] MEDS ORDERED: Nitroglycerin 0.4 MG SUBL SL PRN (01:20)
--- NOTE | 2024-04-23 03:21 | NUR ---
SHIFT SUMMARY 48 YR M ADMITTED ON 04/22/24. FULL CODE. NO ACUTE CHANGES SINCE ADMISSION TO MEDICAL UNIT @ 8125. NO FACIAL DROOP OR DEFICITS OBSERVED. PT IS A&O X 4 AND INDEPENDANT IN THE ROOM. HE EXPRESSES BEING ANXIOUS ABOUT HIS MRI TOMORROW AND IT'S FINDINGS. MRI CHECK SHEET COMPLETED AND FAXED TO IMAGING. WILL CONTINUE TO MONITOR. BED IN LOW POSITION AND CALL LIGHT IN REACH.
[2024-04-23 05:22] VITALS: BP 119/84
[2024-04-23 08:34] VITALS: BP 159/89
[2024-04-23] MEDS ORDERED: Topiramate 25 MG Tab PO SCH (09:00)
[2024-04-23] MEDS ORDERED: Ezetimibe 10 MG Tab PO SCH (09:00)
[2024-04-23] MEDS ORDERED: Lisinopril 5 MG Tab PO SCH (09:00)
[2024-04-23] MEDS ORDERED: Ticagrelor 90 MG TABLET PO SCH (09:00)
[2024-04-23] MEDS ORDERED: Isosorbide Mononitrate 60 MG TABCR PO SCH (09:00)
[2024-04-23] MEDS ORDERED: Empagliflozin 25 MG TAB PO SCH (09:00)
[2024-04-23] MEDS ORDERED: Aspirin 81 MG Chew PO SCH (09:00)
[2024-04-23 09:16] LABS: BASOPHILS ABSOLUTE AUTO 0.03 K/mm3 (0.00-0.23); BASOPHILS PERCENT AUTO 1 % (0-2); EOSINOPHILS ABSOLUTE AUTO 0.06 K/mm3 (0.00-0.68); EOSINOPHILS PERCENT AUTO 2 % (0-6); Hematocrit 47.5 % (37.0-53.0); Hemoglobin 15.9 g/dL (13.5-17.5); IMMATURE GRAN ABSOLUTE AUTO 0.01 K/mm3 (0.00-0.10); IMMATURE GRAN PERCENT AUTO 0 % (0-1); LYMPHOCYTES ABSOLUTE AUTO 1.06 K/mm3 (0.84-5.20); LYMPHOCYTES PERCENT AUTO 35 % (21-46); MONOCYTES ABSOLUTE AUTO 0.22 K/mm3 (0.16-1.47); MONOCYTES PERCENT AUTO 7 % (4-13); Mean Corpuscular HGB 33.2 pg (26.0-34.0); Mean Corpuscular HGB Conc 33.5 g/dL (31.5-36.5); Mean Corpuscular Volume 99 fL (80-100); Mean Platelet Volume 9.6 fL (9.1-12.4); NEUTROPHILS ABSOLUTE AUTO 1.67 K/mm3 (1.96-9.15); NEUTROPHILS PERCENT AUTO 55 % (41-73); Platelet Count 188 K/mm3 (150-400); RDW Standard Deviation 47.8 fL (35.1-46.3); Red Blood Cell Count 4.79 M/mm3 (4.30-5.90); White Blood Cell Count 3.05 K/mm3 (4.00-11.30)
[2024-04-23] MEDS ORDERED: BENZ100A PO (09:40)
[2024-04-23 09:41] LABS: Alanine Aminotransfer (ALT/SGP 38 U/L (12-78); Albumin, Blood 4.2 g/dL (3.4-5.0); Albumin/Globulin Ratio 1.1 (0.8-1.8); Alk Phos 114 U/L (50-136); Anion Gap 11 mmol/L (3-11); Aspartate Aminotrans (AST/SGOT 26 U/L (12-37); Bilirubin, Total 0.6 mg/dL (0.1-1.0); Blood Urea Nitrogen 16 mg/dL (8-24); Bun/Creatinine Ratio 11.9 (12.0-20.0); CHOL/HDL RATIO 3.7; CO2, Blood 25 mmol/L (21-32); Chloride, Blood 108 mmol/L (98-108); Cholesterol 112 mg/dL (50-200); Creatinine, Blood 1.35 mg/dL (0.60-1.20); Globulin, Blood 3.9 g/dL (2.2-4.0); Glomerular Filtration Rate 65 (60-); Glucose, Blood 148 mg/dL (70-99); HDL Cholesterol 30 mg/dL (>39); LDL/HDL RATIO 1.8; Low Density Lipoprotein Chol 55 mg/dL (0-110); Potassium, Blood 3.6 mmol/L (3.5-5.5); Sodium, Blood 140 mmol/L (136-145); Total Protein, Blood 8.1 g/dL (6.4-8.2); Triglycerides 133 mg/dL (30-160); Very Low Density Lipoprot Chol 26 mg/dL (6-32)
[2024-04-23] MEDS ORDERED: BUTALBITAL-ASA1 EACH PO (09:42)
[2024-04-23] MEDS ORDERED: ONDA4ODT MM (09:58)
--- NOTE | 2024-04-23 10:35 | NUR ---
PATIENT PROVIDED COPY OF MEDICATION LIST. COPY MADE FOR PAPER CHART AND MED REC COMPLETED.
--- NOTE | 2024-04-23 12:46 | NUR ---
FAX TO [facility] IN [place], [place], REQUESTING REQCORDS FROM 2018 CARDIAC STENTING FOR MRI CLEARANCE.
--- NOTE | 2024-04-23 15:03 | NUR ---
CALL TO [facility] IN [facility] TO FOLLOW-UP ON MEDICAL RECORDS. SHE WILL LOOK FOR STENT RECORDS AND FAX OR CALL IF SHE CANNOT FIND THEM.
--- NOTE | 2024-04-23 15:46 | NUR ---
MESSAGE FOR DR. STAUFFER: HAVE BEEN UNABLE TO SECURE RECORDS FROM [facility] IN [facility], AT THIS TIME. I HAVE CALLED AND SPOKEN WITH A SONIDO AND A JEAN PIERRE AND HAVE YET TO RECEIVE RECORDS.
[2024-04-23 15:56] VITALS: BP 133/95
--- NOTE | 2024-04-23 17:33 | NUR ---
THIRD CALL TO [facility] IN [place], [place] AND SPOKE WITH SONIDO. HE FOUND OP REPORT FOR 06/14/18 OFF-PUMP CORONARY ATERY BYPASS GRAFTING x2, VIEYRA TO LAD, SVG TO RCA. FAXED COPY TO [facility] IN MRI FOR REVIEW.
--- NOTE | 2024-04-23 17:51 | NUR ---
PATIENT CALLED REQUESTING IV PAIN MEDICATIONS HE TYPICALLY TAKES "THE MAXIMUM DOSE OF GABAPENTIN AT HOME HOME" BUT THE PAIN ON THE RIGHT SIDE OF HIS BODY IS GETTING WORSE. THIS RN ASKED IF IT WAS PAIN BECAUSE HE'D LAST SAID IT WAS NUMBNESS. NOW STATES IT IS NUMBNESS AND PAIN, BOTH. CALL TO DR. STAUFFER ASKING FOR CALL BACK.
--- NOTE | 2024-04-23 18:32 | NUR ---
END OF SHIFT SUMMARY: A&Ox4. PLEASANT AND COOPERATIVE WITH CARE. CALLS APPROPRIATELY AND IS ABLE TO ADVOCATE NEEDS EFFECTIVELY. AMBULATES INDEPENDENTLY WITHIN ROOM. CONTINENT OF BOWEL AND BLADDER. MEDS WHOLE c FLUIDS. NO PAIN OR DISCOMFORT TODAY. SOME CONTINUED COMPLAINTS OF PARESTHESIA RIGHT SIDE OF FACE; NO EXTREMITY DEFICIT. DOES HAVE SOME DROOLING OUT RIGHT SIDE OF MOUTH. CALL TO [facility] IN [place], [place] AND FAX SENT REQUESTING MEDICAL RECORDS FOR STENTS PLACED IN 2018 FOR MRI CLEARANCE. EVENTUALLY RECEIVED OPERATIVE REPORT FOR MAY 2018 FOR STENT PLACEMENT/GRAFT; RECORDS IN CHART. MRI NOTIFIED. VERY ANXIOUS TODAY. MADE COMMENTS TO STAFF ABOUT BEING IN A REHAB FACILITY. WAS LATER HEARD HAVING AN EMOTIONALLY HEIGHTENED CONVERSATION WITH ON THE PHONE. REQUESTING IV PAIN MEDICATION STATING HE TYPICALLY TAKES "MAXIMUM AMOUNT OF GABAPENTIN AND SMOKES MARIJUANA" AT HOME TO PREVENT MIGRAINES AND KEEP ANXIETY AT [place]. MESSAGE TO DR. STAUFFER. JAIN PSYCH COORDINATOR IN TO POPULATION GENETICIST HOU[employer] TO TAKE CARE OF HIS DOGS; THIS IS CAUSING HIM A LOT OF ANXIETY WITH HIS IN REHAB FACILITY. BED IN LOWEST POSITION, CALL LIGHT WITHIN REACH, ALL NEEDS MET. REPORT TO ONCOMING NURSE.
[2024-04-23 19:22] VITALS: BP 129/79
[2024-04-23] MEDS ORDERED: Insulin Glargine-Yfgn 100 Unit/mL 3 ML SYR SC SCH (21:00)
[2024-04-23] MEDS ORDERED: Atorvastatin 40 MG Tab PO SCH (21:00)
[2024-04-23] MEDS ORDERED: HYDROcodone 5-APAP 325 TAB PO PRN (21:20)
[2024-04-23] MEDS ORDERED: Gabapentin 300 MG Cap PO ONE (21:30)
[2024-04-23 22:56] VITALS: BP 117/78
[2024-04-23] MEDS ORDERED: Nitroglycerin 0.4 MG SUBL ONE (22:57)
--- NOTE | 2024-04-23 23:39 | NUR ---
PT C/O CHEST PAIN THAT WAS "TIGHT AND HEAVY". NITRO GIVEN @ 2259, 2305, AND 2310. EKG PERFORMED THAT SHOWED NSR WITH T WAVE ABNORMALITY. EKG COMPARED TO ONE DONE YESTERDAY IN ED WHICH WAS NORMAL. PT STATED LITTLE RELEIF WITH NITRO BUT STATED THAT HE JUST WANTED A PILLOW TO HUG. NO FURTHER C/O CHEST PAIN. HOSPITALIST NOTIFIED AND TROP ORDERED FOR NOW AND AGAIN IN 2 HOURS. WILL CONTINUE TO MONITOR PT.
--- NOTE | 2024-04-24 03:50 | NUR ---
SHIFT SUMMARY PT C/O CHEST PAIN THIS SHIFT AND GIVEN NITRO X 3 AND EKG. PLEASE SEE PRIOR NOTE. AT BEGINNING OF SHIFT PT WAS ASKING SPECIFICALLY FOR IV PAIN MEDS. HOSPITALIST NOTIFIED AND ORDER WAS OBTAINED FOR PO NORCO. PT WAS DISPLEASED BUT STATED THAT IT WAS "BETTER THAN NOTHING". ORDER WAS ALSO OBTAINED FOR GABAPENTIN PER PT'S HOME MED LIST. AFTER THE CHEST PAIN ISSUE PT WENT TO SLEEP AND SLEPT FOR MOST OF THE REST OF THE SHIFT. NO OTHER ACUTE CHANGES THIS SHIFT. WILL CONTINUE TO MONITOR. BED IN LOW POSITION AND CALL LIGHT IN REACH.
[2024-04-24 04:16] VITALS: BP 92/65
[2024-04-24 07:25] VITALS: BP 137/81
[2024-04-24] MEDS ORDERED: Gabapentin 300 MG Cap PO SCH (09:00)
[2024-04-24] MEDS ORDERED: TICA90TA PO (15:22)
--- NOTE | 2024-04-24 15:41 | NUR ---
DISCHARGE NOTE: PT MADE A COMMENT TO A BREAST PULLER ABOUT WANTING A ROPE TO HANG HIMSELF. THIS RN SPOKE WITH PT REGARING COMMENT. HE SAID HE WAS STRESSED AND SHOULD NOT HAVE SAID IT. HE STATED HE WAS NOT SUICIDAL AND THAT HE DID NOT FEEL LIKE HURTING HIMSELF OR ANYONE ELSE. THIS RN CONTINUED TO TALK TO HIM ABOUT HIS STRESSORS. HE ASSURED THIS RN MULTIPLE TIMES HE WAS SAFE AND HAD NO PLANS OF HARMING HIMSELF. MD NOTIFIED OF COMMENT AND SUBSEQUENT CONVERSATION. PT STATED UNDERSTANDING OF DISCHARGE INSTRUCTIONS, NEED TO FOLLOW UP WITH PCP, AND TAKE ALL MEDS PRESCRIBED. THIS RN ESCORTED PT TO FRONT OF HOSPITAL WHERE HE STATES HE IS DRIVING HIMSELF HOME. NO NEEDS OR QUESTIONS AT TIME OF DISCARGE.
[2024-04-25 09:33] LABS: COMPLEMENT COMPONENT 4 27 mg/dL (10-40)
[2024-04-25 10:18] LABS: COMPLEMENT COMPONENT 3 146 mg/dL (90-180)
[2024-04-25 16:01] LABS: DOUBLE-STRANDED DNA IGG ELISA 13 IU (0-24)
[2024-04-25 18:10] LABS: ANTI-NUCLEAR AB ANA,IGG ELISA None Detected (None Detected)
== END 2024-04-24 15:35 | disposition home or self-care (01) ==
LOC: ER 18:21 → MEDS 18:22 → ER 21:27 → MEDS 23:18
PROVIDERS: Student in an Organized Health Care Education/Training Program; ADMIT Internal Medicine
DX: G45.9 Transient cerebral ischemic attack, unspecified (principal); I25.10 Atherosclerotic heart disease of native coronary artery without angina pectoris; M48.02 Spinal stenosis, cervical region; I13.0 Hypertensive heart and chronic kidney disease with heart failure and stage 1 through stage 4 chronic kidney disease, or unspecified chronic kidney disease; I50.32 Chronic diastolic (congestive) heart failure; N18.31 Chronic kidney disease, stage 3a; E11.22 Type 2 diabetes mellitus with diabetic chronic kidney disease; E78.5 Hyperlipidemia, unspecified; G43.909 Migraine, unspecified, not intractable, without status migrainosus; D72.819 Decreased white blood cell count, unspecified; I25.2 Old myocardial infarction; Z79.899 Other long term (current) drug therapy; Z79.4 Long term (current) use of insulin; Z88.5 Allergy status to narcotic agent; Z88.8 Allergy status to other drugs, medicaments and biological substances; Z79.82 Long term (current) use of aspirin; Z95.1 Presence of aortocoronary bypass graft; Z87.891 Personal history of nicotine dependence
CPT/HCPCS: 36415; 70450; 70496; 70498; 70551; 71045; 80053; 80061; 83036; 84443; 84484; 85025; 85379; 85610; 85730; 86038; 86160; 86225; 93005; 93010; 93306; 94760; 96360; 96361; 99285-25; A9270; G0378; J1815; J7030; Q9967

== ENCOUNTER 2024-05-12 19:45 | Emergency (ER) | payer OTHER ==
[~2024-05-12] VITALS: Ht 162.6 cm; Wt 70.5 kg
[~2024-05-12 19:45] MED LIST changes: +BENZ100A PO; +BUTALBITAL-ASA1 EACH PO; +INSULANPEN SC; +TICA90TA PO
[2024-05-12 20:27] LABS: BASOPHILS ABSOLUTE AUTO 0.02 K/mm3 (0.00-0.23); BASOPHILS PERCENT AUTO 0 % (0-2); EOSINOPHILS ABSOLUTE AUTO 0.04 K/mm3 (0.00-0.68); EOSINOPHILS PERCENT AUTO 1 % (0-6); Hematocrit 42.6 % (37.0-53.0); Hemoglobin 14.6 g/dL (13.5-17.5); IMMATURE GRAN ABSOLUTE AUTO 0.01 K/mm3 (0.00-0.10); IMMATURE GRAN PERCENT AUTO 0 % (0-1); LYMPHOCYTES ABSOLUTE AUTO 1.33 K/mm3 (0.84-5.20); LYMPHOCYTES PERCENT AUTO 24 % (21-46); MONOCYTES ABSOLUTE AUTO 0.45 K/mm3 (0.16-1.47); MONOCYTES PERCENT AUTO 8 % (4-13); Mean Corpuscular HGB 32.9 pg (26.0-34.0); Mean Corpuscular HGB Conc 34.3 g/dL (31.5-36.5); Mean Corpuscular Volume 96 fL (80-100); Mean Platelet Volume 9.8 fL (9.1-12.4); NEUTROPHILS ABSOLUTE AUTO 3.73 K/mm3 (1.96-9.15); NEUTROPHILS PERCENT AUTO 67 % (41-73); Platelet Count 156 K/mm3 (150-400); RDW Coefficient Variation 12.6 % (11.7-14.2); RDW Standard Deviation 45.1 fL (35.1-46.3); Red Blood Cell Count 4.44 M/mm3 (4.30-5.90); White Blood Cell Count 5.58 K/mm3 (4.00-11.30)
[2024-05-12 20:43] LABS: International Normalized Ratio 1.04; Prothrombin Time Results 11.1 Sec (9.7-11.5)
[2024-05-12 20:55] LABS: Albumin, Blood 3.9 g/dL (3.4-5.0); Albumin/Globulin Ratio 1.1 (0.8-1.8); Bilirubin, Total 0.5 mg/dL (0.1-1.0); Bun/Creatinine Ratio 18.2 (12.0-20.0); Calcium, Blood 8.8 mg/dL (8.5-10.1); Creatinine, Blood 1.37 mg/dL (0.60-1.20); Globulin, Blood 3.5 g/dL (2.2-4.0); Potassium, Blood 3.5 mmol/L (3.5-5.5); Total Protein, Blood 7.4 g/dL (6.4-8.2)
[2024-05-12 22:54] VITALS: BP 140/86
== END 2024-05-12 22:55 | disposition other institution (70) ==
LOC: ER 19:45
PROVIDERS: Student in an Organized Health Care Education/Training Program
DX: G45.9 Transient cerebral ischemic attack, unspecified (principal); Z88.8 Allergy status to other drugs, medicaments and biological substances; Z88.5 Allergy status to narcotic agent; Z79.899 Other long term (current) drug therapy; Z79.82 Long term (current) use of aspirin; E78.5 Hyperlipidemia, unspecified; I13.0 Hypertensive heart and chronic kidney disease with heart failure and stage 1 through stage 4 chronic kidney disease, or unspecified chronic kidney disease; E11.9 Type 2 diabetes mellitus without complications; K21.9 Gastro-esophageal reflux disease without esophagitis; N18.2 Chronic kidney disease, stage 2 (mild); I50.30 Unspecified diastolic (congestive) heart failure; Z87.891 Personal history of nicotine dependence
CPT/HCPCS: 36415; 70450; 70496; 70498; 71045; 80053; 82947; 84484; 85025; 85610; 85730; 93005; 93010; 99285-25; Q9967

== ENCOUNTER 2024-05-17 09:01 | Day surgery (SDC) | payer OTHER ==
[~2024-05-17] VITALS: Ht 165.1 cm; Wt 75.0 kg
[2024-05-17] VITALS (11 sets, daily range): BP systolic 119–153; BP diastolic 87–100
[2024-05-17] MEDS ORDERED: Heparin Sodium 1000 Units/ML 10ML MDV ONE ×2 (09:30→09:53)
[2024-05-17] MEDS ORDERED: NS 250 ML IV ONE (09:30)
[2024-05-17] MEDS ORDERED: NS 1,000 ML IV ONE ×2 (09:31→09:53)
[2024-05-17] MEDS ORDERED: Midazolam HCl 1MG / ML 2ML Vial ONE (09:53)
[2024-05-17] MEDS ORDERED: FentaNYL Citrate 50 MCG/ML 2 ML Injection ONE (09:53)
[2024-05-17] MEDS ORDERED: Nitroglycerin 2 MG/20 ML BTL ONE (10:53)
--- NOTE | 2024-05-17 11:14 | NUR ---
PATIENT ARRIVED TO RECOVERY ROOM, HOB FLAT. RIGHT GROIN SITE SOFT/NONTENDER, NO EVIDENCE OF BLEEDING. VSS ON RA
--- NOTE | 2024-05-17 11:15 | NUR ---
BILATERAL PULSES PRESENT
--- NOTE | 2024-05-17 12:11 | NUR ---
pt given urinal per request.
--- NOTE | 2024-05-17 12:12 | NUR ---
groin site soft and non-tender per pt. no bleeding/hematoma noted.
--- NOTE | 2024-05-17 12:30 | NUR ---
HOB ELEVATED 30 DEGREES. RIGHT GROIN SITE C/D/I SOFT/NONTENDER, NO EVIDENCE OF BLEEDING. PATIENT TOLERATING PO INTAKE WELL. VSS ON RA.
[2024-05-17] MEDS ORDERED: Acetaminophen 325 MG TABLET ONE (12:35)
--- NOTE | 2024-05-17 13:24 | NUR ---
PATIENT AMBULATING TO RESTROOM WITHOUT DIFFICULTY. RIGHT GROIN SITE C/D/I SOFT/NONTENDER, NO EVIDENCE OF BLEEDING. VSS ON RA. DISCHARGE INSTRUCTIONS REVIEWED WITH PATIENT AND MOTHER AT BEDSIDE, ALL QUESTIONS WERE ANSWERED
--- NOTE | 2024-05-17 13:35 | NUR ---
PATIENT DISCHARGED HOME AT THIS TIME. DISCHARGE INSTRUCTIONS REVIEWED WITH PATIENT AND MOTHER. PIV REMOVED WITHOUT DIFFICULTY, CATHETER INTACT. GROIN SITE C/D/I SOFT/NONTENDER, NO EVIDENCE OF BLEEDING. VSS ON RA. PATIENT WHEELED TO HOPSITAL ENTRANCE AND MOTHER ABLE TO PROVIDE TRANSPORTATION HOME. ALL PATIENT BELONGINGS AND PAPERWORK LEFT WITH PATIENT.
== END 2024-05-17 14:00 | disposition home or self-care (01) ==
LOC: MHTC 09:01
DX: E11.51 Type 2 diabetes mellitus with diabetic peripheral angiopathy without gangrene (principal); I70.213 Atherosclerosis of native arteries of extremities with intermittent claudication, bilateral legs; I25.10 Atherosclerotic heart disease of native coronary artery without angina pectoris; Z95.5 Presence of coronary angioplasty implant and graft; I11.0 Hypertensive heart disease with heart failure; I50.32 Chronic diastolic (congestive) heart failure; E78.5 Hyperlipidemia, unspecified; Z88.5 Allergy status to narcotic agent; Z88.8 Allergy status to other drugs, medicaments and biological substances; Z79.82 Long term (current) use of aspirin; Z79.899 Other long term (current) drug therapy
CPT/HCPCS: 36140; 37224; 37228; 75625; 75716; 75774; 76937; 99152; 99153; A9270; C1725; C1760; C1769; C1887; C1894; C2623; J1644; J2250; J3010; J7030; J7050; Q9967

== ENCOUNTER 2024-07-09 13:14 | Emergency (ER) | payer OTHER ==
[~2024-07-09] VITALS: Ht 162.6 cm; Wt 74.8 kg
[2024-07-09] MEDS ORDERED: NS 1,000 ML IV SCH (13:35)
[2024-07-09 13:51] LABS: BASOPHILS ABSOLUTE AUTO 0.02 K/mm3 (0.00-0.23); BASOPHILS PERCENT AUTO 0 % (0-2); EOSINOPHILS PERCENT AUTO 2 % (0-6); Hematocrit 45.4 % (37.0-53.0); Hemoglobin 15.2 g/dL (13.5-17.5); IMMATURE GRAN ABSOLUTE AUTO 0.01 K/mm3 (0.00-0.10); IMMATURE GRAN PERCENT AUTO 0 % (0-1); LYMPHOCYTES PERCENT AUTO 23 % (21-46); MONOCYTES ABSOLUTE AUTO 0.23 K/mm3 (0.16-1.47); MONOCYTES PERCENT AUTO 5 % (4-13); Mean Corpuscular HGB 32.1 pg (26.0-34.0); Mean Corpuscular HGB Conc 33.5 g/dL (31.5-36.5); Mean Corpuscular Volume 96 fL (80-100); Mean Platelet Volume 9.9 fL (9.1-12.4); NEUTROPHILS ABSOLUTE AUTO 3.41 K/mm3 (1.96-9.15); NEUTROPHILS PERCENT AUTO 70 % (41-73); Platelet Count 145 K/mm3 (150-400); RDW Coefficient Variation 12.6 % (11.7-14.2); RDW Standard Deviation 44.6 fL (35.1-46.3); Red Blood Cell Count 4.73 M/mm3 (4.30-5.90); White Blood Cell Count 4.87 K/mm3 (4.00-11.30)
[2024-07-09 14:01] LABS: CORONAVIRUS COVID-19 AG Positive (NEGATIVE); INFLUENZA A AG Negative (NEGATIVE); INFLUENZA B AG Negative (NEGATIVE)
[2024-07-09 14:21] LABS: Albumin, Blood 4.1 g/dL (3.4-5.0); Bilirubin, Total 0.8 mg/dL (0.1-1.0); Bun/Creatinine Ratio 24.4 (12.0-20.0); Calcium, Blood 8.6 mg/dL (8.5-10.1); Creatinine, Blood 1.35 mg/dL (0.60-1.20); Potassium, Blood 4.3 mmol/L (3.5-5.5); Total Protein, Blood 8.1 g/dL (6.4-8.2)
[2024-07-09 16:30] VITALS: BP 115/84
== END 2024-07-09 16:39 | disposition home or self-care (01) ==
LOC: ER 13:14
PROVIDERS: Student in an Organized Health Care Education/Training Program
DX: U07.1 COVID-19 (principal); I25.10 Atherosclerotic heart disease of native coronary artery without angina pectoris; I25.2 Old myocardial infarction; I69.351 Hemiplegia and hemiparesis following cerebral infarction affecting right dominant side; E11.22 Type 2 diabetes mellitus with diabetic chronic kidney disease; I13.0 Hypertensive heart and chronic kidney disease with heart failure and stage 1 through stage 4 chronic kidney disease, or unspecified chronic kidney disease; N18.9 Chronic kidney disease, unspecified; I50.30 Unspecified diastolic (congestive) heart failure; E78.5 Hyperlipidemia, unspecified; G43.909 Migraine, unspecified, not intractable, without status migrainosus; K21.9 Gastro-esophageal reflux disease without esophagitis; Z95.1 Presence of aortocoronary bypass graft; Z95.5 Presence of coronary angioplasty implant and graft; Z87.891 Personal history of nicotine dependence; Z88.8 Allergy status to other drugs, medicaments and biological substances; Z88.5 Allergy status to narcotic agent; Z79.82 Long term (current) use of aspirin; Z79.01 Long term (current) use of anticoagulants; Z79.84 Long term (current) use of oral hypoglycemic drugs; Z79.899 Other long term (current) drug therapy
CPT/HCPCS: 71046; 80053; 85025; 87428-QW; 99283-25; J7030

== ENCOUNTER 2024-08-29 00:44 | Emergency (ER) | payer OTHER ==
[~2024-08-29] VITALS: Ht 165.1 cm; Wt 74.8 kg
[2024-08-29] MEDS ORDERED: AMLODIPINE BESYL5 MG PO (01:46)
[2024-08-29] MEDS ORDERED: Potassium Chlo20 ME1 PO (01:48)
[2024-08-29] MEDS ORDERED: ISOSORBIDE MONO30 MG PO (01:48)
[2024-08-29] MEDS ORDERED: TICAGRELOR90 MG PO (01:49)
[2024-08-29 01:58] LABS: Alanine Aminotransfer (ALT/SGP 38.0 U/L (12-78); Albumin, Blood 3.5 g/dL (3.4-5.0); Albumin/Globulin Ratio 1.0 (0.8-1.8); Anion Gap 10.0 mmol/L (3-11); Aspartate Aminotrans (AST/SGOT 22.0 U/L (12-37); Bilirubin, Total 0.5 mg/dL (0.1-1.0); Blood Urea Nitrogen 28.0 mg/dL (8-24); CO2, Blood 22.0 mmol/L (21-32); Calcium, Blood 8.0 mg/dL (8.5-10.1); Chloride, Blood 110.0 mmol/L (98-108); Creatinine, Blood 1.47 mg/dL (0.60-1.20); Globulin, Blood 3.6 g/dL (2.2-4.0); Glucose, Blood 242.0 mg/dL (70-99); Potassium, Blood 3.9 mmol/L (3.5-5.5); Sodium, Blood 138.0 mmol/L (136-145); Total Protein, Blood 7.1 g/dL (6.4-8.2)
[2024-08-29 02:00] LABS: BASOPHILS ABSOLUTE AUTO 0.01 K/mm3 (0.00-0.23); BASOPHILS PERCENT AUTO 0 % (0-2); EOSINOPHILS ABSOLUTE AUTO 0.07 K/mm3 (0.00-0.68); EOSINOPHILS PERCENT AUTO 2 % (0-6); Hematocrit 37.6 % (37.0-53.0); Hemoglobin 12.2 g/dL (13.5-17.5); IMMATURE GRAN ABSOLUTE AUTO 0.06 K/mm3 (0.00-0.10); IMMATURE GRAN PERCENT AUTO 1 % (0-1); LYMPHOCYTES ABSOLUTE AUTO 1.65 K/mm3 (0.84-5.20); LYMPHOCYTES PERCENT AUTO 40 % (21-46); MONOCYTES ABSOLUTE AUTO 0.31 K/mm3 (0.16-1.47); MONOCYTES PERCENT AUTO 7 % (4-13); Mean Corpuscular HGB Conc 32.4 g/dL (31.5-36.5); Mean Corpuscular Volume 99 fL (80-100); NEUTROPHILS ABSOLUTE AUTO 2.08 K/mm3 (1.96-9.15); NEUTROPHILS PERCENT AUTO 50 % (41-73); NRBC ABSOLUTE 0.00 K/mm3 (0.00-0.02); NRBC Auto 0.0 /100 WBC (0.0-0.2); Platelet Count 185 K/mm3 (150-400); RDW Coefficient Variation 13.6 % (11.7-14.2); RDW Standard Deviation 50.0 fL (35.1-46.3)
[2024-08-29] MEDS ORDERED: Furosemide 10 MG / ML 2ML Vial IV ONE (02:55)
[2024-08-29] MEDS ORDERED: FentaNYL Citrate 50 MCG/ML 2 ML Injection IV ONE (02:55)
[2024-08-29] MEDS ORDERED: POTA10T PO (03:00)
[2024-08-29] MEDS ORDERED: FURO20 PO (03:00)
[2024-08-29 03:58] VITALS: BP 135/79
== END 2024-08-29 04:10 | disposition home or self-care (01) ==
LOC: ER 00:44
PROVIDERS: Emergency Medicine
DX: R07.89 Other chest pain (principal); R60.0 Localized edema; I13.0 Hypertensive heart and chronic kidney disease with heart failure and stage 1 through stage 4 chronic kidney disease, or unspecified chronic kidney disease; E11.22 Type 2 diabetes mellitus with diabetic chronic kidney disease; N18.9 Chronic kidney disease, unspecified; I50.30 Unspecified diastolic (congestive) heart failure; I25.10 Atherosclerotic heart disease of native coronary artery without angina pectoris; I25.2 Old myocardial infarction; E78.5 Hyperlipidemia, unspecified; G43.909 Migraine, unspecified, not intractable, without status migrainosus; I69.351 Hemiplegia and hemiparesis following cerebral infarction affecting right dominant side; K21.9 Gastro-esophageal reflux disease without esophagitis; Z95.1 Presence of aortocoronary bypass graft; Z87.891 Personal history of nicotine dependence; Z95.5 Presence of coronary angioplasty implant and graft; Z88.8 Allergy status to other drugs, medicaments and biological substances; Z88.5 Allergy status to narcotic agent; Z79.82 Long term (current) use of aspirin; Z79.02 Long term (current) use of antithrombotics/antiplatelets; Z79.899 Other long term (current) drug therapy
CPT/HCPCS: 71045; 80053; 83880; 84484; 85025; 93005; 93010; 96374; 96375; 99285-25; A9270; J1938; J3010

== ENCOUNTER 2024-10-14 16:35 | Emergency (ER) | payer OTHER ==
[~2024-10-14] VITALS: Ht 165.1 cm; Wt 77.1 kg
[~2024-10-14 16:35] MED LIST changes: +AMLODIPINE BESYL5 MG PO; +FURO20 PO; -GABA300 PO; +GABA600 PO; +ISOSORBIDE MONO30 MG PO; +POTA10T PO; +Potassium Chlo20 ME1 PO; +TICAGRELOR90 MG PO
[2024-10-14 17:43] LABS: Alanine Aminotransfer (ALT/SGP 26.0 U/L (12-78); Albumin, Blood 3.5 g/dL (3.4-5.0); Albumin/Globulin Ratio 0.9 (0.8-1.8); Anion Gap 7.0 mmol/L (3-11); Aspartate Aminotrans (AST/SGOT 29.0 U/L (12-37); Bilirubin, Total 0.6 mg/dL (0.1-1.0); Blood Urea Nitrogen 19.0 mg/dL (8-24); CO2, Blood 24.0 mmol/L (21-32); Calcium, Blood 8.2 mg/dL (8.5-10.1); Chloride, Blood 105.0 mmol/L (98-108); Creatinine, Blood 0.91 mg/dL (0.60-1.20); Globulin, Blood 3.7 g/dL (2.2-4.0); Glucose, Blood 300.0 mg/dL (70-99); Potassium, Blood 4.2 mmol/L (3.5-5.5); Sodium, Blood 132.0 mmol/L (136-145); Total Protein, Blood 7.2 g/dL (6.4-8.2)
[2024-10-14] MEDS ORDERED: NS 1,000 ML IV SCH (18:30)
[2024-10-14 18:47] LABS: BASOPHILS ABSOLUTE AUTO 0.03 K/mm3 (0.00-0.23); BASOPHILS PERCENT AUTO 1 % (0-2); EOSINOPHILS ABSOLUTE AUTO 0.07 K/mm3 (0.00-0.68); EOSINOPHILS PERCENT AUTO 1 % (0-6); Hematocrit 46.5 % (37.0-53.0); Hemoglobin 14.8 g/dL (13.5-17.5); IMMATURE GRAN ABSOLUTE AUTO 0.02 K/mm3 (0.00-0.10); IMMATURE GRAN PERCENT AUTO 0 % (0-1); LYMPHOCYTES ABSOLUTE AUTO 1.36 K/mm3 (0.84-5.20); LYMPHOCYTES PERCENT AUTO 23 % (21-46); MONOCYTES ABSOLUTE AUTO 0.52 K/mm3 (0.16-1.47); MONOCYTES PERCENT AUTO 9 % (4-13); Mean Corpuscular HGB Conc 31.8 g/dL (31.5-36.5); Mean Corpuscular Volume 95 fL (80-100); NEUTROPHILS ABSOLUTE AUTO 4.05 K/mm3 (1.96-9.15); NEUTROPHILS PERCENT AUTO 67 % (41-73); NRBC ABSOLUTE 0.00 K/mm3 (0.00-0.02); NRBC Auto 0.0 /100 WBC (0.0-0.2); Platelet Count 189 K/mm3 (150-400); RDW Coefficient Variation 13.2 % (11.7-14.2); RDW Standard Deviation 46.7 fL (35.1-46.3)
[2024-10-14] MEDS ORDERED: LASIX40 MG PO (20:31)
[2024-10-14 21:00] VITALS: BP 128/97
== END 2024-10-14 21:24 | disposition home or self-care (01) ==
LOC: ER 16:35
PROVIDERS: Student in an Organized Health Care Education/Training Program
DX: R07.9 Chest pain, unspecified (principal); E78.5 Hyperlipidemia, unspecified; I25.10 Atherosclerotic heart disease of native coronary artery without angina pectoris; I25.2 Old myocardial infarction; I13.0 Hypertensive heart and chronic kidney disease with heart failure and stage 1 through stage 4 chronic kidney disease, or unspecified chronic kidney disease; I50.30 Unspecified diastolic (congestive) heart failure; E11.22 Type 2 diabetes mellitus with diabetic chronic kidney disease; N18.9 Chronic kidney disease, unspecified; K21.9 Gastro-esophageal reflux disease without esophagitis; Z87.891 Personal history of nicotine dependence; Z88.8 Allergy status to other drugs, medicaments and biological substances; Z88.5 Allergy status to narcotic agent; Z79.899 Other long term (current) drug therapy
CPT/HCPCS: 71046; 80053; 83880; 84484; 85025; 93005; 93010; 96360; 99285-25; A9270; J7030

== ENCOUNTER 2024-10-18 12:59 | Inpatient (IN) | payer OTHER ==
[~2024-10-18] VITALS: Ht 165.1 cm; Wt 75.2 kg
[~2024-10-18 12:59] MED LIST changes: +LASIX40 MG PO
[2024-10-18 13:35] LABS: BASOPHILS ABSOLUTE AUTO 0.02 K/mm3 (0.00-0.23); BASOPHILS PERCENT AUTO 1 % (0-2); EOSINOPHILS ABSOLUTE AUTO 0.05 K/mm3 (0.00-0.68); EOSINOPHILS PERCENT AUTO 2 % (0-6); Hematocrit 40.8 % (37.0-53.0); Hemoglobin 13.6 g/dL (13.5-17.5); IMMATURE GRAN ABSOLUTE AUTO 0.01 K/mm3 (0.00-0.10); IMMATURE GRAN PERCENT AUTO 0 % (0-1); LYMPHOCYTES ABSOLUTE AUTO 0.64 K/mm3 (0.84-5.20); LYMPHOCYTES PERCENT AUTO 20 % (21-46); MONOCYTES ABSOLUTE AUTO 0.31 K/mm3 (0.16-1.47); MONOCYTES PERCENT AUTO 10 % (4-13); Mean Corpuscular HGB Conc 33.3 g/dL (31.5-36.5); Mean Corpuscular Volume 95 fL (80-100); NEUTROPHILS ABSOLUTE AUTO 2.13 K/mm3 (1.96-9.15); NEUTROPHILS PERCENT AUTO 67 % (41-73); NRBC ABSOLUTE 0.00 K/mm3 (0.00-0.02); NRBC Auto 0.0 /100 WBC (0.0-0.2); Platelet Count 167 K/mm3 (150-400); RDW Coefficient Variation 13.0 % (11.7-14.2); RDW Standard Deviation 45.5 fL (35.1-46.3)
[2024-10-18 14:18] LABS: Alanine Aminotransfer (ALT/SGP 23.0 U/L (12-78); Albumin, Blood 4.1 g/dL (3.4-5.0); Albumin/Globulin Ratio 1.2 (0.8-1.8); Anion Gap 12.0 mmol/L (3-11); Aspartate Aminotrans (AST/SGOT 17.0 U/L (12-37); Bilirubin, Total 0.5 mg/dL (0.1-1.0); Blood Urea Nitrogen 30.0 mg/dL (8-24); CO2, Blood 24.0 mmol/L (21-32); Calcium, Blood 8.0 mg/dL (8.5-10.1); Chloride, Blood 98.0 mmol/L (98-108); Creatinine, Blood 1.36 mg/dL (0.60-1.20); Globulin, Blood 3.5 g/dL (2.2-4.0); Glucose, Blood 630.0 mg/dL (70-99); Potassium, Blood 4.3 mmol/L (3.5-5.5); Sodium, Blood 130.0 mmol/L (136-145); Total Protein, Blood 7.6 g/dL (6.4-8.2)
[2024-10-18] MEDS ORDERED: NS 1,000 ML IV SCH ×2 (14:40→14:50)
[2024-10-18] MEDS ORDERED: Insulin Glargine-Yfgn 100 Unit/mL 3 ML SYR SC STA (15:18)
[2024-10-18] MEDS ORDERED: Insulin Human Lispro 100 Units/ML 3ML Syringe SC SCH (16:30)
[2024-10-18] MEDS ORDERED: Insulin Regular 100 Unit/ML 1ML Dose IV ONE (17:00)
[2024-10-18 17:19] VITALS: BP 128/87
[2024-10-18 19:30] VITALS: BP 111/65
--- NOTE | 2024-10-18 19:38 | NUR ---
ASSUMPTION OF CARE CLIENT ADMITTED THROUGH THE ED FOR STROKE LIKE SYMPTOMS. AOX4. 1 PERSON ASSIST TO COMMODE. BLOOD SUGARS IN ED WAS 630. BLOOD SUGAR ON ADMISSION TO MEDICAL WAS 271. COVERAGE GIVEN PER EMAR. CLIENT HAS CONSISTENT CARB DIET AND ACCUCHECKS AC/HS. MRI AND CT OF HEAD PERFORMED. PT EVAL PENDING.CLIENT IS ON TELE - SINUS RYTHM @ 79. CLIENT HAS HISTORY OF CVA, TIA, CAD, HTN, HDL, DM2, HF, CKD3, CABG, AND STENTING. BED IS IN LOW POSITION AND CALL LIGHT IS WITHIN REACH
[2024-10-18 23:59] VITALS: BP 116/71
[2024-10-19] VITALS (8 sets, daily range): BP systolic 96–158; BP diastolic 55–83
--- NOTE | 2024-10-19 00:32 | NUR ---
SUMMARY: PT AOX4, IND IN BED-ON BEDREST, URINAL AT BEDSIDE, RA, ABLE TO CALL APPROPRIATELY. PT STATED HE WAS HAVING CHEST PAIN AT BEGINNING OF SHIFT. PROVIDER NOTIFIED AND EKG ORDERED ALONG WITH TROPS. EKG CAME BACK NORMAL COMPARED ALONGSIDE HIS TELEMETRY READINGS AND TROPS WERE BOTH 9. PROVIDER ORDERED PT TRAMADOL FOR PAIN AND GABAPENTIN FOR FOOT PAIN. PT RESTING EQUAL CHEST RISE AND FALL NOW. MED REC UNABLE TO BE COMPLETED BECAUSE PT HAS MEDS FILLED BY HIS DOCTORS OFFICE SO HE IS UNAWARE OF WHAT HE TAKES WHEN. PASSED ALONG TO NURSE LESLEY URBAN- HAIR ALBRIGHT. 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 CALL LIGHT WITHIN REACH AND BED IN LOW POSITION.
[2024-10-19] MEDS ORDERED: FentaNYL Citrate 50 MCG/ML 2 ML Injection IV PRN (01:55)
--- NOTE | 2024-10-19 04:23 | NUR ---
PT STATING STILL IN PAIN AND INITIAL DOSE OF FENT NOT EFFECTIVE. ORDER WAS FOR 25-50 MCG. GAVE 25MCG AT 0238. PT REASSESSED WITH PAIN 8-10. SPOKE WITH RN REGARDING PT PAIN AND THE FENT ORDER, THEN ADMIN THE REMAINING 25MCG PER ORDER THAT STATED 25-50MCG Q4.
[2024-10-19 06:19] LABS: CHOL/HDL RATIO 2.2; Cholesterol 99 mg/dL (50-200); HDL Cholesterol 46 mg/dL (>39); LDL/HDL RATIO 0.9; Low Density Lipoprotein Chol 40 mg/dL (0-110); Triglycerides 63 mg/dL (30-160); Very Low Density Lipoprot Chol 12 mg/dL (6-32)
[2024-10-19 07:33] LABS: Anion Gap 9.0 mmol/L (3-11); Blood Urea Nitrogen 27.0 mg/dL (8-24); CO2, Blood 25.0 mmol/L (21-32); Calcium, Blood 8.2 mg/dL (8.5-10.1); Chloride, Blood 105.0 mmol/L (98-108); Creatinine, Blood 1.25 mg/dL (0.60-1.20); Glucose, Blood 158.0 mg/dL (70-99); Potassium, Blood 3.5 mmol/L (3.5-5.5); Sodium, Blood 135.0 mmol/L (136-145)
[2024-10-19] MEDS ORDERED: Isosorbide Mononitrate 60 MG TABCR PO SCH (09:00)
[2024-10-19] MEDS ORDERED: Enoxaparin 40 MG/0.4 ML SYR SC SCH (09:00)
[2024-10-19] MEDS ORDERED: Multivitamins/Minerals 1 Tab PO SCH (09:00)
--- NOTE | 2024-10-19 11:08 | NUR ---
NOTE PT REPORTED PAIN IN FEET/ARM/CHEST PAIN/SOB. PT WORKED WITH PHYSICAL THERAPY THIS AM. PT REPORTED RECOMEND SNF AND FWW AND GB W SBA. PT REPORTED DIZZY WHEN AMBULATING. PT REPORTED PAIN IN LEG W TINGLING AND RADIATING UP. REPORTED SYMPTOMS TO DR. ALBERTO. ORDERED NITRO PRN. PT DENIED NITRO THIS AM. PT REPORTED NOT RELIEVED WITH FENT 25 MCG AND ULTRAM. PT REPORTED WANTING TO TRY NITRO SINCE NO RELIEF W OTHER PAIN MANAGEMENT. BLOOD PRESSURE 127/81. TOOK ONE NITRO. PT REPORTED NOT RELIEVED WITH NITRO. PT BLOOD PRESSURE 110/68. PT REPORTED WANTING TRY A SECOND NITRO. TOOK BLOOD PRESSURE, BLOOD PRESSURE IS 111/64.PT REPORTS 6/10 CHEST PAIN. THIS RN ADMINISTERED 3RD DOSE OF NITRO. BLOOD PRESSURE IS 96/61. PT REPORTS "5.5/10 CHEST PAIN. PT REPORTS CHEST PAIN GOING UPWARD. PT REPORTS CONSTANT PAIN. SOMETIMES IF I MOVE IT RADIATES THEN GOES AWAY THEN ALL OF A SUDDEN IT COMES BACK AGAIN." PT IN BED, BED IN LOWEST POSITION, CALL LIGHT IN REACH.
--- NOTE | 2024-10-19 11:49 | NUR ---
NOTE CALLED DR. CERVANTES TO REPORT GIVEN NITRO AND BP. THAT CHEST PAIN NOT RELIEVED. NO NEW ORDERS AT THIS TIME.
[2024-10-19] MEDS ORDERED: Mag Hydrox/Al Hydrox/Simeth 18 ML,Lidocaine 2% Viscous Soln 9 ML,Atropine/Scopalam/Hyos... PO ONE (12:10)
--- NOTE | 2024-10-19 12:18 | NUR ---
CALLED DR CERVANTES RE TP RECEIVED NITRO X3 NO RELEIF, STILL 7/10 CHEST PAIN. MINIMAL WEAKNESS IN SCHOOL PSYCHOLOGY SPECIALIST ON RT. PT STATES NUMB/TING SOME IN RT SIDE. ALSO STTES RT FOOT "FLOPPY". STATES FEELS NOT CARDIAC OR STROKE, ORDERS FOR GI COCKTAIL X1
[2024-10-19] MEDS ORDERED: NS 500 ML IV SCH (12:20)
[2024-10-19] MEDS ORDERED: NS 500 ML IV ONE (12:22)
[2024-10-19] MEDS ORDERED: NAPR500 PO (12:24)
[2024-10-19] MEDS ORDERED: ARTHRITIS PAIN150 GM TOP (12:25)
[2024-10-19] MEDS ORDERED: BUTALB-ACETAMI1 EAC6 PO (12:26)
--- NOTE | 2024-10-19 12:31 | NUR ---
IN ROOM, CAME TO SEE PT. BOLUS ORDERED ANDSTARTED.
--- NOTE | 2024-10-19 14:01 | NUR ---
NOTE BLOOD PRESSURE POST BOLUS IS 108/55. CALLED TO NOTIFY DR. CERVANTES. NO NEW ORDERS.
--- NOTE | 2024-10-19 19:27 | NUR ---
SHIFT SUMMARY PT A&OX4. PT ADMITTED DUE TO STROKE LIKE SYMPTOMS. REPORTS R SIDE DEFICIT. NO DROOP NOTED. PT REPORTS SOME SOB. PT REPORTS DIZZY WHEN AMBULATING. PT IS A SBA W FWW AND GB. PT WORKED WITH PHYSICAL THERAPY THIS AM AND RECOMMENDED SNF. PT REPORTS SOME CONSTIPATION. PT TRIED MAALOX FOR INDEGESTION, PT REPORTED IT HELPED A LITTLE BUT NOT SIGNIFICANT. PT REPORTS NO CHEST PAIN RIGHT NOW. PT REPORTS FOOT PAIN. PT GOT A BOLUS OF FLUIDS TODAY POST NITRO ADMINISTRATION. VITALS STABLE. PT ON ROOM AIR. SPO2 100% PT IN BED,. BED IN LOWEST POSITION, CALL LIGHT IN REACH. PLAN IS ECHO TOMORROW. PT STATES MAY HAVE SOME ANXIETY DUE TO RECENT DIVORCE.
[2024-10-20 04:44] VITALS: BP 129/87
[2024-10-20 05:32] LABS: BASOPHILS ABSOLUTE AUTO 0.02 K/mm3 (0.00-0.23); BASOPHILS PERCENT AUTO 1 % (0-2); EOSINOPHILS ABSOLUTE AUTO 0.09 K/mm3 (0.00-0.68); EOSINOPHILS PERCENT AUTO 2 % (0-6); Hematocrit 45.5 % (37.0-53.0); Hemoglobin 14.9 g/dL (13.5-17.5); IMMATURE GRAN ABSOLUTE AUTO 0.01 K/mm3 (0.00-0.10); IMMATURE GRAN PERCENT AUTO 0 % (0-1); LYMPHOCYTES ABSOLUTE AUTO 1.47 K/mm3 (0.84-5.20); LYMPHOCYTES PERCENT AUTO 38 % (21-46); MONOCYTES ABSOLUTE AUTO 0.30 K/mm3 (0.16-1.47); MONOCYTES PERCENT AUTO 8 % (4-13); Mean Corpuscular HGB Conc 32.7 g/dL (31.5-36.5); Mean Corpuscular Volume 95 fL (80-100); NEUTROPHILS ABSOLUTE AUTO 2.02 K/mm3 (1.96-9.15); NEUTROPHILS PERCENT AUTO 52 % (41-73); NRBC ABSOLUTE 0.00 K/mm3 (0.00-0.02); NRBC Auto 0.0 /100 WBC (0.0-0.2); Platelet Count 179 K/mm3 (150-400); RDW Coefficient Variation 13.1 % (11.7-14.2); RDW Standard Deviation 45.9 fL (35.1-46.3)
--- NOTE | 2024-10-20 05:57 | NUR ---
SHIFT SUMMARY PT ADMITTED FOR STROKE LIKE SYMPTOMS . PT IS ALERT AND ORIENTED TIMES 4. PT DOES NOT REQUIRE SUPPLEMENTAL O2 . PT TAKES MEDICATION WHOLE WITH WATER. PT IS RECEPTIVE TO CARE. PT USES URINAL AT BEDSIDE. PT IS ACHS. PT HAS TELE READING NORMAL SINUS 65. PT APPEARS TO HAVE SLEPT ON AND OFF THROUGH THE NIGHT. PT BED IN LOW POSITION, CALL LIGHT WITHIN REACH, RAILS TIMES 2.
[2024-10-20 06:07] LABS: Alanine Aminotransfer (ALT/SGP 25.0 U/L (12-78); Albumin, Blood 3.7 g/dL (3.4-5.0); Albumin/Globulin Ratio 1.0 (0.8-1.8); Anion Gap 9.0 mmol/L (3-11); Aspartate Aminotrans (AST/SGOT 19.0 U/L (12-37); Bilirubin, Total 0.4 mg/dL (0.1-1.0); Blood Urea Nitrogen 23.0 mg/dL (8-24); CO2, Blood 22.0 mmol/L (21-32); Calcium, Blood 8.6 mg/dL (8.5-10.1); Chloride, Blood 107.0 mmol/L (98-108); Creatinine, Blood 1.14 mg/dL (0.60-1.20); Globulin, Blood 3.6 g/dL (2.2-4.0); Glucose, Blood 175.0 mg/dL (70-99); Potassium, Blood 3.9 mmol/L (3.5-5.5); Sodium, Blood 134.0 mmol/L (136-145); Total Protein, Blood 7.3 g/dL (6.4-8.2)
[2024-10-20 07:59] VITALS: BP 137/76
[2024-10-20] MEDS ORDERED: Insulin Human Lispro 100 Units/ML 3ML Syringe SC SCH ×2 (08:30→11:30)
[2024-10-20] MEDS ORDERED: Insulin Human Lispro 100 Units/ML 3ML Syringe SC ONE (08:50)
--- NOTE | 2024-10-20 08:51 | NUR ---
NOTE ULTRASOUND PREFORMING ECHO NOW. DR. MENDIETA UPDATED INSULIN ORDER. HIGH SLIDING SCALE FELL OFF EMAR. NO SLIDING SCALE ON EMAR THIS AM. CALLED DR. MENDIETA TO CLARIFY WHAT SHOULD BE GIVEN THIS AM. DR. MENDIETA REPORTED ORDER ONE TIME HIGH SC FOR BREAKFAST CORRECTION, START UPDATED ORDERS AT LUNCH TIME. PT BLOOD SUGAR THIS AM 152.
[2024-10-20 11:23] VITALS: BP 154/88
[2024-10-20 16:18] VITALS: BP 132/78
--- NOTE | 2024-10-20 19:26 | NUR ---
SHIFT SUMMARY PT A&OX4. PT ADMITTED DUE TO STROKE LIKE SYMPTOMS. REPORTS R SIDE DEFICIT. NO DROOP NOTED. PT STATES HAS INTERMITTENT CHEST PAIN. PT REPORTS SOME SOB. PT IS A SBA W FWW AND GB.ECHO COMPLETED TODAY. PT REPORTS CONSTIPATION, BUT PASSING GAS, BOWEL MEDS ORDERED. PT REPORTS FOOT PAIN AND TINGLING ON R SIDE OF BODY INTERMITTENT. PAIN MANAGED PER EMAR. VSS. PT ON ROOM AIR. SPO2 100% PT IN BED,. BED IN LOWEST POSITION, CALL LIGHT IN REACH. PT EDUCATED ABOUT MOBILITY AND FALL PRECAUTIONS, PT DOES NOT ALWAYS CALL WHEN NEEDING TO USE BATHROOM. BED ALARM ON FOR SAFETY. PLAN IS WAIT FOR INSURANCE AUTH FOR SNF. POSSIBLE DISCHARGE TUESDAY PER DR. ROSA.
[2024-10-20 20:05] VITALS: BP 149/91
[2024-10-20] MEDS ORDERED: Insulin Glargine-Yfgn 100 Unit/mL 3 ML SYR SC SCH ×2 (21:00)
[2024-10-20 23:47] VITALS: BP 110/68
[2024-10-21 04:02] VITALS: BP 133/84
[2024-10-21 05:37] LABS: BASOPHILS ABSOLUTE AUTO 0.02 K/mm3 (0.00-0.23); BASOPHILS PERCENT AUTO 1 % (0-2); EOSINOPHILS ABSOLUTE AUTO 0.09 K/mm3 (0.00-0.68); EOSINOPHILS PERCENT AUTO 3 % (0-6); Hematocrit 43.1 % (37.0-53.0); Hemoglobin 14.1 g/dL (13.5-17.5); IMMATURE GRAN ABSOLUTE AUTO 0.01 K/mm3 (0.00-0.10); IMMATURE GRAN PERCENT AUTO 0 % (0-1); LYMPHOCYTES ABSOLUTE AUTO 1.48 K/mm3 (0.84-5.20); LYMPHOCYTES PERCENT AUTO 41 % (21-46); MONOCYTES ABSOLUTE AUTO 0.43 K/mm3 (0.16-1.47); MONOCYTES PERCENT AUTO 12 % (4-13); Mean Corpuscular HGB Conc 32.7 g/dL (31.5-36.5); Mean Corpuscular Volume 95 fL (80-100); NEUTROPHILS ABSOLUTE AUTO 1.57 K/mm3 (1.96-9.15); NEUTROPHILS PERCENT AUTO 44 % (41-73); NRBC ABSOLUTE 0.00 K/mm3 (0.00-0.02); NRBC Auto 0.0 /100 WBC (0.0-0.2); Platelet Count 160 K/mm3 (150-400); RDW Coefficient Variation 13.1 % (11.7-14.2); RDW Standard Deviation 45.7 fL (35.1-46.3)
[2024-10-21 06:02] LABS: Alanine Aminotransfer (ALT/SGP 29.0 U/L (12-78); Albumin, Blood 3.2 g/dL (3.4-5.0); Albumin/Globulin Ratio 1.0 (0.8-1.8); Anion Gap 8.0 mmol/L (3-11); Aspartate Aminotrans (AST/SGOT 25.0 U/L (12-37); Bilirubin, Total 0.4 mg/dL (0.1-1.0); Blood Urea Nitrogen 25.0 mg/dL (8-24); CO2, Blood 23.0 mmol/L (21-32); Calcium, Blood 8.0 mg/dL (8.5-10.1); Chloride, Blood 108.0 mmol/L (98-108); Creatinine, Blood 1.25 mg/dL (0.60-1.20); Globulin, Blood 3.3 g/dL (2.2-4.0); Glucose, Blood 174.0 mg/dL (70-99); Potassium, Blood 4.2 mmol/L (3.5-5.5); Sodium, Blood 135.0 mmol/L (136-145); Total Protein, Blood 6.5 g/dL (6.4-8.2)
[2024-10-21 07:41] VITALS: BP 118/75
[2024-10-21 11:26] VITALS: BP 146/82
[2024-10-21 15:18] VITALS: BP 174/85
[2024-10-21] MEDS ORDERED: BASAGLAR K100 UNIT/1 SC (16:54)
--- NOTE | 2024-10-21 17:30 | NUR ---
DISCHARGE NOTE PT A&OX4. PT ADMITTED DUE TO STROKE LIKE SYMPTOMS. REPORTS R SIDE DEFICIT. NO DROOP NOTED. PT STATES NO CHEST PAIN TODAY. PT REPORTS FEET PAIN/TINGLING, MEDICATED PER EMAR. PT IS A SBA W FWW AND GB. PT REPORTS CONSTIPATION, BUT PASSING GAS, BOWEL MEDS ORDERED. VSS. PT ON ROOM AIR. PT EDUCATED ABOUT MOBILITY AND FALL PRECAUTIONS, PT DOES NOT ALWAYS CALL WHEN NEEDING TO USE BATHROOM. BED ALARM ON FOR SAFETY. DR. ROSA D/C [place]. PT WORKED WITH PHYSICAL THERAPY TODAY. PT RECOMENDS HOME HEALTH. DR. ROSA ORDERED DISCHARGE WITH HOME HEALTH. WENT OVER DISCHARGE AND MEDS WITH PT. TELE DC, NO TELE REPORTS. IV DC'D. PROGRAMMING DEVELOPMENT PROJECT MANAGER ESCORTED PT VIA WHEELCHAIR TO PATIENT ENTERANCE. PT LEFT WITH ALL BELONGINGS.
== END 2024-10-21 17:32 | disposition home health service (06) | DRG 638 ==
LOC: ER 12:59 → MEDS 15:00
PROVIDERS: Student in an Organized Health Care Education/Training Program; ADMIT Internal Medicine
DX: E11.65 Type 2 diabetes mellitus with hyperglycemia (principal); I13.0 Hypertensive heart and chronic kidney disease with heart failure and stage 1 through stage 4 chronic kidney disease, or unspecified chronic kidney disease; N17.9 Acute kidney failure, unspecified; I50.32 Chronic diastolic (congestive) heart failure; I69.351 Hemiplegia and hemiparesis following cerebral infarction affecting right dominant side; E78.5 Hyperlipidemia, unspecified; G43.909 Migraine, unspecified, not intractable, without status migrainosus; I25.10 Atherosclerotic heart disease of native coronary artery without angina pectoris; R20.2 Paresthesia of skin; I44.0 Atrioventricular block, first degree; K21.9 Gastro-esophageal reflux disease without esophagitis; E11.22 Type 2 diabetes mellitus with diabetic chronic kidney disease; M79.606 Pain in leg, unspecified; N18.31 Chronic kidney disease, stage 3a; Z60.2 Problems related to living alone; Z90.49 Acquired absence of other specified parts of digestive tract; Z95.1 Presence of aortocoronary bypass graft; Z95.5 Presence of coronary angioplasty implant and graft; Z87.891 Personal history of nicotine dependence; Z88.8 Allergy status to other drugs, medicaments and biological substances; I25.2 Old myocardial infarction; I69.392 Facial weakness following cerebral infarction; Z79.899 Other long term (current) drug therapy; Z79.82 Long term (current) use of aspirin
CPT/HCPCS: 36415; 70450; 70496; 70498; 70551; 80048; 80053; 80061; 82947; 83036; 84484; 85025; 93005; 93010; 93306; 97110; 97112; 97161; 97530; 99285-25; A9270; G0378; J1650; J1815; J3010; J7030; J7040; Q9967